=== PATIENT | male | born 1950 | race Caucasian/White ===

== ENCOUNTER 2017-04-20 08:01 | Emergency (ER) | payer OTHER ==
[2017-04-20 08:10] VITALS: BP 176/104; PULSE 81; RESP 16; TEMP 98.4; O2SAT 94
--- NOTE | 2017-04-20 08:13 | EDPHY ---
H & P Stated Complaint: SWELLING OF BOTH EYELIDS, SINCE THURSDAY Time Seen by Provider: 04/20/17 08:13 - Personal History Current Tetanus/Diphtheria Vaccine: Unsure - Medical/Surgical History Hx Asthma: No Hx Chronic Respiratory Disease: No Hx Diabetes: No Hx Cardiac Disease: No Hx Renal Disease: No Hx Cirrhosis: No Hx Alcoholism: No Hx Splenectomy or Spleen Trauma: No Other PMH: PROSTATE CANCER - Social History Smoking Status: Never smoked Constitutional: Initial Vital Signs Temperature (C) 36.9 C 04/20/17 08:06 Heart Rate 81 04/20/17 08:06 Respiratory Rate 16 04/20/17 08:06 Blood Pressure 176/104 H 04/20/17 08:06 O2 Sat (%) 94 04/20/17 08:06 O2 Delivery Mode Room Air Allergies/Adverse Reactions: No Known Allergies Allergy (Unverified 04/20/17 08:10) Home Medications: Medication Instructions Recorded Baby Aspirin 04/20/17 Famotidine [Pepcid 20 MG (OTC)] 40 mg PO DAILY #7 tab 04/20/17 Hormone Jayce 04/20/17 Lisinopril 04/20/17 predniSONE 40 mg PO DAILY #10 tab 04/20/17 Medical Decision Making ED Course/Re-evaluation: CHIEF COMPLAINT: Periorbital swelling HISTORY OF PRESENT ILLNESS: The patient is a 66 y/o male arriving with his family member complaining of periorbital swelling for the last two days. He's experienced this 5-6 times before while traveling to [place] and [place] and initially thought it may have been the hotel pillow, hotel detergent, pesticides , or water, but he has been unable to identify exactly what the trigger is. He does not get these symptoms while home in [place]. The swelling is not pruritic. He denies any respiratory involvement, lip swelling, tongue swelling, throat swelling, hives, rash, or other symptoms. He took 25mg Benadryl this morning for symptoms. He notes he has prostate cancer and is due to start immunotherapy in a few days. REVIEW OF SYSTEMS: A 10 point review of systems was performed and is negative with the exception of the elements mentioned in the history of present illness. PHYSICAL EXAM: HR, BP, O2 Sat, RR. Temp noted General Appearance: Alert, well hydrated, appropriate, and non-toxic appearing. Head: Atraumatic without scalp tenderness or obvious injury Eyes: Pupils equal, round, reactive to light and accommodation, EOMI, no trauma , no injection. Significant bilateral periorbital swelling and erythema. Nose: Atraumatic, no rhinorrhea, clear. Throat: There is no erythema or exudates, no lesions, normal tonsils, mucus membranes moist. No angioedema. Uvula midline. Neck: Supple Respiratory: No retractions, no distress, no wheezes, and no accessory muscle use. Lungs are clear to auscultation bilaterally. No stridor. Cardiovascular: Regular rate and rhythm, no murmurs, rubs, or gallops. Good capillary refill all extremities. Gastrointestinal: Abdomen is soft, nontender, non-distended, no masses, no rebound, no guarding, no peritoneal signs. Musculoskeletal: Normal active ROM of all extremities, atraumatic. Neurological: Alert, appropriate, and interactive. Nonfocal neuro exam. Skin: No rashes, good turgor, no nodules on palpation. Past medical history: Prostate cancer Past surgical history: denies Family history: noncontributory Social history: Family member at bedside. Mother in hospice. Just returned from [place]. DIFFERENTIAL DIAGNOSIS: The differential diagnosis included but was not limited to contact dermatitis, angioedema, anaphylaxis, anaphylactoid reaction, urticarial reaction, and other infectious causes for skin rash. MEDICAL DECISION MAKING: This is a 66 y/o male who presents with a 2-day history of pronounced periorbital swelling that began while traveling this weekend. He has had approximately 5-6 prior episodes of similar symptoms and has been unable to identify the trigger. No evidence of respiratory or systemic involvement. His symptoms are consistent with a contact dermatitis. Plan for treatment 60mg PO prednisone, 40mg PO Pepcid, and standard allergic reaction follow up instructions. He is comfortable with this plan. Strict return precautions given. - Data Points Medications Given: Discontinued Medications Famotidine (Pepcid) 40 mg PO EDNOW ONE Stop: 04/20/17 08:21 Last Admin: 04/20/17 08:23 Dose: 40 mg Prednisone (Prednisone) 60 mg PO EDNOW ONE Stop: 04/20/17 08:21 Last Admin: 04/20/17 08:24 Dose: 60 mg Departure - Departure Disposition: Home, Routine, Self-Care Clinical Impression: Periorbital swelling Allergic reaction Qualifiers: Encounter type: initial encounter Qualified Code(s): T78.40XA - Allergy, unspecified, initial encounter Contact dermatitis Qualifiers: Contact dermatitis type: allergic Contact dermatitis trigger: other trigger Qualified Code(s): L23.89 - Allergic contact dermatitis due to other agents Condition: Good Instructions: General Allergic Reaction (ED) Additional Instructions: 1. Take prednisone and Pepcid as prescribed for the next 5 days. Discuss these medications with your oncologist. 2. Use Benadryl as needed for symptoms. 3. Follow up with an geographic information system surveyor in the next week. 4. Return to the ED for difficulty breathing, swallowing, or other worsening of condition. Referrals: Lesia Mason MD [Primary Care Provider] - As per Instructions Anjana Bunn MD [Medical Doctor] - As per Instructions Prescriptions: Famotidine [Pepcid 20 MG (OTC)] 40 mg PO DAILY #7 tab predniSONE 40 mg PO DAILY #10 tab Report Scribed for: Emiliano Kruse Report Scribed by: Yeimi Sanon Date of Report: 04/20/17 Time of Report: 09:21
[2017-04-20] MEDS ORDERED: diphenhydrAMINE 50 MG CAP PO ONE (08:19)
[2017-04-20] MEDS ORDERED: FAMOTIDINE 20 MG TAB PO ONE (08:20)
[2017-04-20] MEDS ORDERED: predniSONE 20 MG TAB PO ONE (08:20)
== END 2017-04-20 08:35 | disposition home or self-care (01) ==
DX: L23.89 Allergic contact dermatitis due to other agents (principal); Z85.46 Personal history of malignant neoplasm of prostate

== ENCOUNTER → 2018-07-14 | Outpatient (CLI) | payer OTHER ==
[~2018-07-14] MED LIST: GADOBUTROL 10 ML VIAL IVP ONE
== END ==
LOC: FIMAGING 09:27
PROVIDERS: ATTEND Internal Medicine Hematology & Oncology
DX: C61 Malignant neoplasm of prostate (principal); M79.651 Pain in right thigh; M79.652 Pain in left thigh; C79.51 Secondary malignant neoplasm of bone
CPT/HCPCS: 72157; 72158; 78306; A9503; A9585

== ENCOUNTER 2018-09-05 11:09 | Inpatient (IN) | payer OTHER ==
--- NOTE | 2018-09-05 11:28 | EDPHY ---
H & P Time Seen by Provider: 09/05/18 11:24 HPI/ROS: CHIEF COMPLAINT: Can't move the right leg HISTORY OF PRESENT ILLNESS: Patient has metastatic prostate cancer and has been through multiple treatments since he was diagnosed in 2013. He started having right leg weakness back on and had a lumbar and thoracic spine MRI on July 14 that did not show spinal cord compression. He was initially diagnosed because he plays the piano when he could not depressed the pedal with his right foot. He has just completed his 3rd chemotherapy treatment for prostate cancer. He presents today because the weakness was so bad that today he could not walk. Symptoms seem to be worse for him at night associated with bilateral muscle pain in the thighs. Not associated with numbness or incontinence. Symptoms today are severe. REVIEW OF SYSTEMS: Eye: no change in vision ENT: no sore throat Cardiac: no chest pain or syncope Pulmonary: no cough or SOB Abdomen: no vomiting, diarrhea, abdominal pain Musculoskeletal: HPI Skin: no rash Neuro: HPI, mild headache Constitutional: no fever : no urinary symptoms A comprehensive 10 point review of systems is otherwise negative aside from elements mentioned in the history of present illness. PAST MEDICAL HISTORY: Includes prostate cancer Social history: Here with his spouse, sees Dr. Harper at [facility] see General Appearance: Alert and conversant, cooperative. Eyes: Patient has some bilateral eyelid ecchymosis and swelling which according to the family is been present for least a couple of months and is not changed significantly from yesterday. ENT, Mouth: Normal mucous membranes. Respiratory: Normal respiratory effort, breath sounds equal, lungs are clear to auscultation. Cardiovascular: Regular rate and rhythm. Gastrointestinal: Abdomen is soft and non tender. Neurological: Patient is alert, face symmetric, good manager sql strength bilaterally. Speech is fluent. His right knee is weak and he is weak in dorsiflexion and plantar flexion of his right foot. He really can't dorsiflex at all in his toe is upgoing when tested for Babinski. Skin: Some right eyelid ecchymosis right greater than left Musculoskeletal: No peripheral edema. Psychiatric: Not agitated. Emergency Department course/MDM: Discussed with Dr. Beckford for [facility] prior to the patient 's arrival. Plan for Neuro axis MRI without contrast, discussed with Dr. Sandoval. Admission for further evaluation, can't walk. 1259: [place] will consult. 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 No spinal reason for right leg weakness. Patient is informed, hospitalist here to see the patient. Neurosurgical consultation obtained by Jannie. Smoking Status: Never smoked Constitutional: Initial Vital Signs Temperature (C) 37 C 09/05/18 11:19 Heart Rate 92 09/05/18 11:19 Respiratory Rate 16 09/05/18 11:19 Blood Pressure 126/60 H 09/05/18 11:19 O2 Sat (%) 95 09/05/18 11:19 O2 Delivery Mode Room Air Allergies/Adverse Reactions: No Known Allergies Allergy (Verified 09/05/18 11:14) Home Medications: Medication Instructions Recorded Acetaminophen [Tylenol ES 500 mg 1,000 mg PO TID 09/05/18 (*)] Aspirin [Aspirin 81mg (*)] 81 mg PO DAILY 09/05/18 Cholecalciferol Vit D3 [Vitamin D3 3,000 units PO DAILY 09/05/18 (*)] Herbals/Supplements -Info Only 1 ea PO DAILY 09/05/18 Ibuprofen [Advil] 400 mg PO DAILY 09/05/18 LORazepam [Ativan (*)] 0.5 mg PO HS 09/05/18 [place]-3 Fatty Acids [Fish Oil 1000 2,000 mg PO DAILY 09/05/18 mg (*)] Prochlorperazine Maleate 10 mg PO Q6 PRN 09/05/18 [Compazine 10mg (*)] Sertraline HCl [Zoloft 25mg (*)] 12.5 mg PO DAILY 09/05/18 predniSONE 10 mg PO DAILY 09/05/18 traMADol HCL [Tramadol HCl] 50 mg PO HS 09/05/18 Medical Decision Making - Diagnostics Imaging: Discussed imaging studies w/ house calls nurse practitioner Radiologist Differential Diagnosis: Differential considered including but not limited to intracranial mass, intracranial bleed, spinal cord compression, peripheral neuropathy. Consult/Admit Bed Type: [facility] - Data Points Laboratory Results: Laboratory Results 09/05/18 12:02 09/05/18 12:02 09/05/18 09/05/18 09/05/18 12:08 12:02 12:02 WBC 4.40 10^3/uL 10^3/uL (3.80-9.50) RBC 3.13 10^6/uL L 10^6/uL (4.40-6.38) Hgb 8.2 g/dL L g/dL (13.7-17.5) POC Hgb 9.2 gm/dL L gm/dL (13.7-17.5) Hct 27.8 % L % (40.0-51.0) POC Hct 27 % L % (40-51) MCV 88.8 fL fL (81.5-99.8) MCH 26.2 pg L pg (27.9-34.1) MCHC 29.5 g/dL L g/dL (32.4-36.7) RDW 20.8 % H % (11.5-15.2) Plt Count 278 10^3/uL 10^3/uL (150-400) MPV 9.0 fL fL (8.7-11.7) Neut % (Auto) 77.0 % H % (39.3-74.2) Lymph % (Auto) 12.0 % L % (15.0-45.0) [place] % (Auto) 8.0 % % (4.5-13.0) Eos % (Auto) 1.4 % % (0.6-7.6) Baso % (Auto) 0.5 % % (0.3-1.7) Nucleat RBC Rel Count 0.5 % H % (0.0-0.2) Absolute Neuts (auto) 3.39 10^3/uL 10^3/uL (1.70-6.50) Absolute Lymphs (auto) 0.53 10^3/uL L 10^3/uL (1.00-3.00) Absolute Monos (auto) 0.35 10^3/uL 10^3/uL (0.30-0.80) Absolute Eos (auto) 0.06 10^3/uL 10^3/uL (0.03-0.40) Absolute Basos (auto) 0.02 10^3/uL 10^3/uL (0.02-0.10) Absolute Nucleated RBC 0.02 10^3/uL H 10^3/uL (0-0.01) Immature Gran % 1.1 % % (0.0-1.1) Immature Gran # 0.05 10^3/uL 10^3/uL (0.00-0.10) RBC/WBC/PLT Morphology TNP Platelet Estimate ADEQUATE (ADEQ) Polychromasia 1+ H Hypochromasia 1+ H Basophilic Stippling 1+ H Microcytic Cells 1+ H Tear Drop Cells 1+ H Smear Review By Pending POC Sodium 137 mEq/L mEq/L (135-145) Sodium 135 mEq/L mEq/L (135-145) POC Potassium 4.0 mEq/L mEq/L (3.3-5.0) Potassium 4.3 mEq/L mEq/L (3.5-5.2) POC Chloride 100 mEq/L mEq/L (97-110) Chloride 102 mEq/L mEq/L (97-110) Carbon Dioxide 26 mEq/l mEq/l (22-31) Anion Gap 7 mEq/L mEq/L (6-14) POC BUN 17 mg/dL mg/dL (7-23) BUN 19 mg/dL mg/dL (7-23) Creatinine 0.8 mg/dL mg/dL (0.7-1.3) POC Creatinine 0.8 mg/dL mg/dL (0.7-1.3) Estimated GFR > 60 Glucose 90 mg/dL mg/dL (70-100) POC Glucose 89 mg/dL mg/dL (70-100) Calcium 8.4 mg/dL L mg/dL (8.5-10.4) Creatine Kinase 259 IU/L H IU/L (0-224) CK-MB (CK-2) Fraction 0.85 ng/mL ng/mL (0.00-4.55) CK-MB (CK-2) % 0.3 % % (0.0-4.0) Creatine Kinase Interp NEGATIVE (NEGATIVE) Point of Care Test Results: Chemistry 09/05/18 12:08 POC Sodium 137 mEq/L mEq/L (135-145) POC Potassium 4.0 mEq/L mEq/L (3.3-5.0) POC Chloride 100 mEq/L mEq/L (97-110) POC BUN 17 mg/dL mg/dL (7-23) POC Creatinine 0.8 mg/dL mg/dL (0.7-1.3) POC Glucose 89 mg/dL mg/dL (70-100) ISTAT H&H 09/05/18 12:08 POC Hgb 9.2 gm/dL L gm/dL (13.7-17.5) POC Hct 27 % L % (40-51) Departure - Departure Disposition: [facility] Inpatient Acute Clinical Impression: left parenchymal intracranial hemorrhage Condition: Serious
[2018-09-05 12:14] LABS: PLATELET COUNT 278 10^3/uL (150-400)
[2018-09-05 12:26] LABS: CREATINE KINASE 259 IU/L (0-224)
[2018-09-05] MEDS ORDERED: ONDANSETRON 4 MG/2 ML VIAL IVP PRN (14:06)
[2018-09-05] MEDS ORDERED: HYDROmorphONE/DILAUDID 1 MG/ML INJ IVP PRN (14:06)
[2018-09-05] MEDS ORDERED: ONDANSETRON DISINTEGRATING 4 MG TAB PO PRN (14:06)
[2018-09-05] MEDS ORDERED: ACETAMINOPHEN 325 MG TAB PO PRN (14:06)
[2018-09-05] MEDS ORDERED: HYDROCODONE/APAP 5/325 TAB PO PRN (14:06)
--- NOTE | 2018-09-05 14:06 | PDGENHP ---
History and Physical - Chief Complaint RLE weakness - History of Present Illness 67 yo male with h/o prostate cancer and known spine mets presents with RLE weakness. He was unable to walk today due to profound leg weakness and presented to the ED. He denies urinary or bowel incontinence. He underwent thoracic and lumbar spine MRI in 06/2018, which was negative for cord impingement. However, his symptoms have worsened since then. He is followed by Dr. Harper and just completed his 3rd chemo treatment. He denies headache , but endorses some vision changes recently with intermittent blurry vision. He also notes left hand numbness at times. No fevers/chills. No CP or SOB. No back pain despite multilevel metastatic disease. In the ED, he was sent for whole spine MRI and brain MRI. This revealed left hemispheric hemorrhagic stroke in setting of dural and brain mets. Oncology and neurosurgery are consulted and he is admitted for further management. History Information - Allergies/Home Medication List Allergies/Adverse Reactions: No Known Allergies Allergy (Verified 09/05/18 11:14) Home Medications: Acetaminophen [Tylenol ES 500 mg (*)] 1,000 mg PO TID 09/05/18 [Last Taken 09/05] Aspirin [Aspirin 81mg (*)] 81 mg PO DAILY 09/05/18 [Last Taken 09/05/18] Cholecalciferol Vit D3 [Vitamin D3 (*)] 3,000 units PO DAILY 09/05/18 [Last Taken 09/05/18] Herbals/Supplements -Info Only 1 ea PO DAILY 09/05/18 [Last Taken Unknown] Ibuprofen [Advil] 400 mg PO DAILY 09/05/18 [Last Taken 09/05/18] LORazepam [Ativan (*)] 0.5 mg PO HS 09/05/18 [Last Taken 09/04/18] [place]-3 Fatty Acids [Fish Oil 1000 mg (*)] 2,000 mg PO DAILY 09/05/18 [Last Taken 09/05/18] Prochlorperazine Maleate [Compazine 10mg (*)] 10 mg PO Q6 PRN 09/05/18 [Last Taken Unknown] Sertraline HCl [Zoloft 25mg (*)] 12.5 mg PO DAILY 09/05/18 [Last Taken 09/05/18] predniSONE 10 mg PO DAILY 09/05/18 [Last Taken 09/04/18] traMADol HCL [Tramadol HCl] 50 mg PO HS 09/05/18 [Last Taken 09/04/18] I have personally reviewed and updated: family history, medical history, social history, surgical history - Past Medical History Additional medical history: Prostate cancer - Surgical History Additional surgical history: Prostatectomy 2013 - Family History Positive for: non-pertinent - Social History Smoking Status: Never smoked Alcohol Use: None Drug Use: None Additional social history: Lives independently, . at bedside. Review of Systems Review of Systems: ROS: 10pt was reviewed & negative except for what was stated in HPI & below Physical Exam Physical Exam: Temp Pulse Resp BP Pulse Ox 37 C 92 16 126/60 H 95 09/05/18 11:19 09/05/18 11:19 09/05/18 11:19 09/05/18 11:19 09/05/18 11: Constitutional: no apparent distress Eyes: PERRL, other (eyelid ecchymosis b/l) Ears, Nose, Mouth, Throat: moist mucous membranes Cardiovascular: regular rate and rhythym Respiratory: no respiratory distress, clear to auscultation Gastrointestinal: normoactive bowel sounds, soft, non-tender abdomen Skin: warm Musculoskeletal: other (absent right ankle reflexes and unable to plantar flex or dorsiflex at ankle, but proximal RLE intact) Neurologic: AAOx3 Psychiatric: interacting appropriately Lab Data & Imaging Review 09/05/18 12:02 09/05/18 12:02 WBC 4.40 10^3/uL (3.80-9.50) 09/05/18 12:02 RBC 3.13 10^6/uL (4.40-6.38) L 09/05/18 12:02 Hgb 8.2 g/dL (13.7-17.5) L 09/05/18 12:02 POC Hgb 9.2 gm/dL (13.7-17.5) L 09/05/18 12:08 Hct 27.8 % (40.0-51.0) L 09/05/18 12:02 POC Hct 27 % (40-51) L 09/05/18 12:08 MCV 88.8 fL (81.5-99.8) 09/05/18 12:02 MCH 26.2 pg (27.9-34.1) L 09/05/18 12:02 MCHC 29.5 g/dL (32.4-36.7) L 09/05/18 12:02 RDW 20.8 % (11.5-15.2) H 09/05/18 12:02 Plt Count 278 10^3/uL (150-400) 09/05/18 12:02 MPV 9.0 fL (8.7-11.7) 09/05/18 12:02 Neut % (Auto) 77.0 % (39.3-74.2) H 09/05/18 12:02 Lymph % (Auto) 12.0 % (15.0-45.0) L 09/05/18 12:02 [place] % (Auto) 8.0 % (4.5-13.0) 09/05/18 12:02 Eos % (Auto) 1.4 % (0.6-7.6) 09/05/18 12:02 Baso % (Auto) 0.5 % (0.3-1.7) 09/05/18 12:02 Nucleat RBC Rel Count 0.5 % (0.0-0.2) H 09/05/18 12:02 Absolute Neuts (auto) 3.39 10^3/uL (1.70-6.50) 09/05/18 12:02 Absolute Lymphs (auto) 0.53 10^3/uL (1.00-3.00) L 09/05/18 12:02 Absolute Monos (auto) 0.35 10^3/uL (0.30-0.80) 09/05/18 12:02 Absolute Eos (auto) 0.06 10^3/uL (0.03-0.40) 09/05/18 12:02 Absolute Basos (auto) 0.02 10^3/uL (0.02-0.10) 09/05/18 12:02 Absolute Nucleated RBC 0.02 10^3/uL (0-0.01) H 09/05/18 12:02 Immature Gran % 1.1 % (0.0-1.1) 09/05/18 12:02 Immature Gran # 0.05 10^3/uL (0.00-0.10) 09/05/18 12:02 RBC/WBC/PLT Morphology TNP 09/05/18 12:02 Platelet Estimate ADEQUATE (ADEQ) 09/05/18 12:02 Polychromasia 1+ H 09/05/18 12:02 Hypochromasia 1+ H 09/05/18 12:02 Basophilic Stippling 1+ H 09/05/18 12:02 Microcytic Cells 1+ H 09/05/18 12:02 Tear Drop Cells 1+ H 09/05/18 12:02 POC Sodium 137 mEq/L (135-145) 09/05/18 12:08 Sodium 135 mEq/L (135-145) 09/05/18 12:02 POC Potassium 4.0 mEq/L (3.3-5.0) 09/05/18 12:08 Potassium 4.3 mEq/L (3.5-5.2) 09/05/18 12:02 POC Chloride 100 mEq/L (97-110) 09/05/18 12:08 Chloride 102 mEq/L (97-110) 09/05/18 12:02 Carbon Dioxide 26 mEq/l (22-31) 09/05/18 12:02 Anion Gap 7 mEq/L (6-14) 09/05/18 12:02 POC BUN 17 mg/dL (7-23) 09/05/18 12:08 BUN 19 mg/dL (7-23) 09/05/18 12:02 Creatinine 0.8 mg/dL (0.7-1.3) 09/05/18 12:02 POC Creatinine 0.8 mg/dL (0.7-1.3) 09/05/18 12:08 Estimated GFR > 60 09/05/18 12:02 Glucose 90 mg/dL (70-100) 09/05/18 12:02 POC Glucose 89 mg/dL (70-100) 09/05/18 12:08 Calcium 8.4 mg/dL (8.5-10.4) L 09/05/18 12:02 Creatine Kinase 259 IU/L (0-224) H 09/05/18 12:02 CK-MB (CK-2) Fraction 0.85 ng/mL (0.00-4.55) 09/05/18 12:02 CK-MB (CK-2) % 0.3 % (0.0-4.0) 09/05/18 12:02 Creatine Kinase Interp NEGATIVE (NEGATIVE) 09/05/18 12:02 Assessment & Plan Assessment: RLE weakness 2/2 hemorrhagic brain mets -admit to ICU, neurochecks -IV Dexamethasone -load with keppra if he has seizure activity -neurosurgery consulted, will keep NPO for now -oncology to consult Prostate cancer with extensive bone mets and now dural / brain mets with acute hemorrhage - s/p radical prostatectomy at [facility] in 2013 followed by radiation therapy and tx with Lupron and Casodex. He was treated with Zytiga in 08/2017 when PSA continued to rise and spinal mets were discovered. Most recently, he is completed cycle 3 of cabazitaxel and prednisone. -oncology will consult -pain control H/O hypercalcemia of malignancy - s/p Zometa. Ca 8.4 today. Anemia - suspect 2/2 chemo. Receives Aranesp per onc. No indication for transfusion currently. Depression - on SSRI DVT PPLX - defer pharm with brain bleed, SCD's Code status - discussed with pt, he wishes to be DNR/DNI, which will be honored Dispo - inpt, anticipate >48 hrs hospitalization for ongoing management of brain mets/hemorrhage. PT/OT evals planned.
[2018-09-05] MEDS ORDERED: PROCHLORPERAZINE MALEATE 10 MG TAB PO PRN (14:07)
[2018-09-05] MEDS ORDERED: GADOBUTROL 10 ML VIAL IVP ONE (14:40)
[2018-09-05] MEDS ORDERED: DEXAMETHASONE 10 MG/ML VIAL IVP ONE (15:33)
[2018-09-05] MEDS ORDERED: DEXAMETHASONE 20 MG in NS 50 ML IV ONE (16:00)
[2018-09-05] MEDS ORDERED: NS 1,000 ML IV SCH (16:00)
--- NOTE | 2018-09-05 16:27 | ASMTCMCOM ---
CM Note CM Note Notes: Pt presented to the ED for RLE weakness. Pt's PMH includes prostate cancer w/known extensive mets to the spine. Pt is followed by Dr Harper at [facility]. Pt just recently completed his third chemo treatment. Pt had a prostatectomy in 2013. Pt admitted for acute hemorrhagic stroke in setting of dural and brain mets. Pt's , Padmini, was at bedside earlier and mentioned to the ED provider and RN that she would like to discuss the possibility of getting a hospital bed into their home, setting up home care assistance, etc. This CM went to speak to pt and he was in MRI and Padmini had stepped out to do something w/their daughter but planned on returning. Apparently Padmini and their daughter, Urvashi, returned to the ED just as the pt was being transported to the ICU. Pt wishes to be a DNR/DNI. Neurosurgery and oncology to consult. Exact DC needs TBD.PT/OT evals ordered. Palliative Care or Hospice consult? CM to follow. Date Signed: 09/05/2018 04:27 PM Electronically Signed By:Consuelo Ladd RN
[2018-09-05] MEDS: ACETAMINOPHEN 500 MG TAB PO SCH ×2 (16:33→21:30)
--- NOTE | 2018-09-05 16:47 | PDMN ---
Medical Necessity Medical necessity: Pt meets inpt criteria per MD order and [facility] M-85, Stroke: Hemorrhagic, 3 days. 67 y/o w/hx of prostate cancer w/ mets to spine, presenting w/severe RLE weakness/unable to ambulate, visual changes, and L hand numbness. Brain MRI today reveals L hemisphere hemorrhagic stroke in setting of dural and brain mets. Neurosurg consulted, NPO for now, ICU monitoring/care. Anticipate>2MN for ongoing eval/management of above.
--- NOTE | 2018-09-05 18:21 | GCON ---
MEDICAL ONCOLOGY FOLLOWUP CONSULTATION REFERRING PHYSICIAN: Mattie Valderrama MD REASON FOR CONSULTATION: Ongoing management of metastatic prostate cancer with new evidence of intra cranial RECOMMENDATIONS: 1. Agree with admission to the hospital in the intensive care unit. 2. Agree with Neurosurgical consultation to determine whether evacuation of his hematoma is appropri ate. 3. The patient may be appropriate for palliative radiation therapy, but this will depend on overall decision making. 4. Agree with dexamethasone 20 mg loading dose followed by 6 mg every 6 hours. 5. I think Palliative Care consultation is appropriate. 6. Agree with do not resuscitate status. 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 He was treated with radical prostatectomy, and had a positive a pical margin. He received adjuvant radiation therapy and was also placed on Lupron and Casodex. He had a rising PSA in July 2017, and received Provenge at that time. Unfortunately, his PSA has co ntinued to rise. The patient received Zytiga without benefit. He has also received Taxotere and, mo st recently, cabazitaxel. He has received 3 doses of that, the most recent of which was on the 03 September 2018. Unfortunately, he has developed increasing weakness of his lower extremities. His called me thi s morning and reported these symptoms. I recommended that he come to the emergency room for evaluati on. As part of that evaluation, he had MRI of his brain as well as MRIs of the cervical, lumbar, and thoracic spine. The brain MRI revealed extensive metastatic disease in his dura with extension into the parenchyma, and hemorrhage into the left parietal lobe. In addition, in his thoracic spine ther e is a 2.2 cm posterior, right-sided epidural tumor at the T7 to T8 level. There is no current cord impingement, however. I believe these recent changes indicate that his current palliative therapy is not addressing his pro gressive metastatic disease. I spoke with the patient, his , and daughter. I believe he is like ly at the point of diminishing returns as far as systemic palliative therapy is concerned. I think i t is reasonable to have a neurosurgical opinion as to whether a fairly simple procedure is appropriat e to evacuate the hematoma. I think Palliative Care consultation is also very appropriate to help cl arify goals of therapy. I will speak with the patient's primary oncologist, Dr. Catrachito Harper, this evening. Dr. Harper will see the patient tomorrow. HISTORY OF PRESENT ILLNESS: Please see assessment. PAST MEDICAL HISTORY: Essentially otherwise unremarkable except for his prostate cancer, its treatme nt and complications. FAMILY HISTORY: Remarkable for prostate cancer in his father and uncle, both of whom had prostate ca ncer when they were in their 70s. SOCIAL HISTORY: He does not smoke. He drinks alcohol occasionally. 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 REVIEW OF SYSTEMS: Remarkable for inability to flex his right ankle, left leg weakness, numbness of his left chin, and periodic right facial droop. He is incontinent of urine, but not of stool. He re ports no nausea or vomiting. He says the pain is not an issue for him at this time. Ten-system revi ew is otherwise unremarkable. PHYSICAL EXAMINATION: GENERAL: Reveals an alert, cushingoid white male with his and daughter a t the bedside. HEENT: He has a slight right facial droop and also some quivering of his left cheek. He has cushingoid features. He does seem to have some hemorrhage in the periorbital spaces bilater ally. LUNGS: Clear to auscultation. CARDIAC: Exam shows regular rhythm. ABDOMEN: Exam shows obe se abdomen. LABORATORY EXAM: Creatinine of 0.8. His sodium is 137. His hemoglobin is 8.2, with a white count o f 4.4, and a platelet count of 278,000. Thank you very much for allowing us to participate in this gentleman's oncologic care. We look forwa rd to assisting with his management. Copy requested to: David Mueller MD [facility] /[id number]/MODL
[2018-09-05 20:10] LABS: INR 1.3 (0.83-1.16); PROTIME(PATIENT) 16.4 SEC (12.0-15.0)
[2018-09-05] MEDS: LORazepam 0.5 MG TAB PO SCH (21:30)
[2018-09-05] MEDS: DEXAMETHASONE 4 MG/ML VIAL IVP SCH (21:30)
[2018-09-05] MEDS: traMADol 50 MG TAB PO SCH (21:30)
[2018-09-06] MEDS: DEXAMETHASONE 4 MG/ML VIAL IVP SCH ×4 (00:18→17:23)
[2018-09-06] MEDS: ACETAMINOPHEN 500 MG TAB PO SCH ×3 (08:13→21:51)
[2018-09-06] MEDS: CHOLECALCIFEROL VIT D3 1,000 UNITS TAB PO SCH (08:14)
[2018-09-06] MEDS: SERTRALINE HCL 25 MG TAB PO SCH (08:14)
[2018-09-06] MEDS ORDERED: predniSONE 5 MG TAB PO SCH (09:00)
--- NOTE | 2018-09-06 09:51 | SOAPPROG ---
SOAP Progress Note Assessment/Plan: Assessment: 1. 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 We had a carrie discussion about his prognosis, which is poor (<6 months). He is not responding to cabzitaxel. We could try Xtandi, but since he progressed on Zytiga, the odds of a meaningful response are low. He is not interested in hospice at this time, however, and wants to try treatments that have even a small chance of helping. In terms of the neurosurgical issues, I discussed his case w/ Dr. Crandall. I would favor a less aggressive surgical approach (eg evacaution of the hematoma without contralateral tumor debulking) and we can use RT to try to control the growth of the dural metastases. Dr. Crandall is in agreement and will meet with the patient later today. Plan: - neurosurgical consult - continue dex 4 mg q6h - no NSAIDs - continue other pain medications - will order Xtandi for use as outpatient 40 min spent w/ pt and in coordination of care. D/w Drs. Crandall and Dalton. 09/06/18 09:45 Subjective: feels better today on dexamethasone. Objective: exam: cushingoid, chronically ill appearing lungs CTAB CV RRR no MGR Abd: +BS NT ND ext: 1+ edema Neuro: a+ox3. no cranial nerve deficits. R foot drop. Vital Signs Temp Pulse Resp BP Pulse Ox 37.0 C 87 17 124/55 H 92 09/06/18 08:00 09/06/18 08:00 09/06/18 08:00 09/06/18 08:00 09/06/18 08:00 Laboratory Results 09/06/18 06:30 09/05/18 09/06/18 09/07/18 05:59 05:59 05:59 Intake Total 300 Output Total 400 Balance -100 PT 16.4 SEC (12.0-15.0) H 09/05/18 19:45 INR 1.30 (0.83-1.16) H 09/05/18 19:45 ICD10 Worksheet Patient Problems: Problems Problem Status Onset Prostate cancer Acute - ICD10 Problem Qualifiers (1) Prostate cancer
--- NOTE | 2018-09-06 10:53 | HOSPPROG ---
Hospitalist Progress Note Assessment/Plan: RLE weakness 2/2 hemorrhagic brain mets -cont dex -neurosurgery to consult Prostate cancer with extensive bone mets and now dural / brain mets with acute hemorrhage / SDH and presume leptomeningeal carcinomatosis - s/p radical prostatectomy at [facility] in 2013 followed by radiation therapy and tx with Lupron and Casodex. He was treated with Zytiga in 08/2017 when PSA continued to rise and spinal mets were discovered. Most recently, he completed cycle 3 of cabazitaxel and prednisone. -appreciate oncology consult, prognosis poor -may be a candidate for radiation, await decision about surgery -palliative care consult today H/O hypercalcemia of malignancy - s/p Zometa. Ca 8.4 today. Anemia - suspect 2/2 chemo. Receives Aranesp per onc. No indication for transfusion currently. Depression - on SSRI DVT PPLX - defer pharm with brain bleed, SCD's Code status - DNR Dispo - cont inpt, palliative care consult today, family open to this Subjective: Pt feels good right now. Still with RLE ankle weakness and foot drop. Denies jones or vision changes. Appetite fair. Denies pain. Objective: Vital Signs Temp Pulse Resp BP Pulse Ox 37.0 C 96 22 H 132/57 H 92 09/06/18 08:00 09/06/18 10:00 09/06/18 10:00 09/06/18 10:00 09/06/18 08:00 Laboratory Results 09/06/18 06:30 09/05/18 09/06/18 09/07/18 05:59 05:59 05:59 Intake Total 300 Output Total 400 Balance -100 PT 16.4 SEC (12.0-15.0) H 09/05/18 19:45 INR 1.30 (0.83-1.16) H 09/05/18 19:45 - Physical Exam Constitutional: no apparent distress Eyes: PERRL Ears, Nose, Mouth, Throat: moist mucous membranes Cardiovascular: regular rate and rhythym Respiratory: no respiratory distress, clear to auscultation Gastrointestinal: normoactive bowel sounds, soft, non-tender abdomen Skin: warm Musculoskeletal: other (RLE ankle reflexes absent, unable to dorsiflex or plantarflex) Neurologic: AAOx3 Psychiatric: interacting appropriately ICD10 Worksheet Patient Problems: Problems Problem Status Onset Prostate cancer Acute
--- NOTE | 2018-09-06 16:59 | ASMTCMCOM ---
CM Note CM Note Notes: 09/06/2018 Case Management Note Rudi from Palliative team met w/family today. Please see Palliative note for details. Faxed referral to [facility] via [employer]. Met w/pt and children to discuss discharge needs. Provided info on [employer] and [employer] companies for hospital bed. Encouraged to contact insurance company to ascertain medical equipment coverage. Pt and declined home care at this time. They have hired [facility] to transport pt to appointments during the day. Pt prefers social aspects of attending outpatient PT. Daughter expressed concerns with pt being home alone. explained that [employer] Alert has been activated and pt feels comfortable with that plan at this time. [facility] met w/pt today. Pt has agreed to start services. [facility] [employer]AFFING EXECUT[employer] will meet w/pt and family on Thu after rounds. Case Management d/c poc: to be determined. Case Management to follow. Date Signed: 09/06/2018 04:59 PM Electronically Signed By:Lesia Cowart RN
--- NOTE | 2018-09-06 17:48 | GCON ---
INPATIENT CONSULTATION CHIEF COMPLAINT: Right leg and ankle weakness. HISTORY OF PRESENT ILLNESS: Patient is a 67-year-old male with a history of prostate cancer and known spinal metastasis. He presented to the Emergency Department due to the increasing weakness in his right leg. The patient noted the majority of his weakness to be located in the right ankle area as well as his quadricep and hamstring, his upper leg strength has improved since being admitted and started on steroids but he continues to have foot weakness. The patient denies any lower back pain. Denies any symptoms in his left lower extremity. The patient denies any bowel or bladder incontinence. MRI of the whole spine and the brain were performed, which revealed multiple brain and spine metastasis, we were asked to see this patient in consult. REVIEW OF SYSTEMS: A 10-point review of systems was performed and negative aside from what was mentioned in the HPI. ALLERGIES: Patient has no known drug allergies. HOME MEDICATIONS: Tylenol 500 mg p.r.n.; aspirin 81 mg daily, last dose was September 05, 2018; vitamin D3 daily; ibuprofen 400 mg p.o. daily, last dose was September 05, 2018; Ativan 0.5 mg p.o. at bedtime; fish oil 1000 mg daily; Compazine 10 mg p.o. q.6 hours p.r.n.; Zoloft 25 mg tablets. He takes 12.5 mg p.o. daily. Prednisone 10 mg p.o. daily; tramadol 50 mg p.o. at bedtime. PAST MEDICAL HISTORY: Prostate cancer and hypertension. SURGICAL HISTORY: Prostatectomy in 2014. FAMILY HISTORY: Family history reviewed, noncontributory to the present situation. SOCIAL HISTORY: The patient is . He is retired. He has never smoked cigarettes. Does not drink alcohol, and does not use any illicit drugs. LABORATORY RESULTS: White blood cell count is 4.84. Hemoglobin is 8. Hematocrit is 26.6. Platelets are 294. PT 16.4, INR 1.3, aPTT 46.2, sodium 137 , potassium 4.3, BUN 19, creatinine 0.8. Glucose is 90. DIAGNOSTIC IMAGING: MRI of the brain performed with and without contrast on September 05, 2018, demonstrates extensive features of dural metastasis disease with a 5 cm dural- based mass at the right parietal with extension through the superior sagittal sinus at the midline into the left parietal para midline meninges. This is associated with a high left parietal multi-lobe related cortical parenchymal hematoma measuring 4.3 x 2.7 cm in size with a mild local mass effect. Extensive dural thickening and Stu enhancement throughout the cerebral hemispheres bilaterally is compatible with extensive meningeal carcinomatosis, moderate white volume matter, microvascular ischemic gliosis, small to moderate right subdural hygroma, and a small left subdural hygroma. Extensive osseous metastasis disease throughout the bony calvarium. Chronic bilateral mastoid sinus disease. MRI of the lumbar spine performed without contrast in September 05, 2018, demonstrates extensive osseous metastasis disease throughout the lower thoracic and lumbar, and upper sacral spine without any evidence of tumor extension into the spinal canal. The patient has minimal features of degenerative disk disease. MRI of the thoracic spine without contrast performed September 05, 2018, demonstrates extensive osseous metastasis disease throughout the thoracic spine with a 2.2 cm posterior right-sided epidural tumor at the T7-8 level with secondary moderate right lateral recess narrowing without thoracic cord impingement or edema currently. MRI of the cervical spine performed without contrast on September 05, 2018, demonstrates extensive osseous metastasis disease throughout the lower cervical spine and upper thoracic spine extending from C5-T2. There is no evidence of tumor extension into the canal or abnormal signal within the spinal cord. PHYSICAL EXAM: VITAL SIGNS: Blood pressure is 132/57, heart rate 96. Respiratory rate is 22. Oxygen saturation is 96% on room air. Temperature 37 degrees Celsius. HEENT: Head is normocephalic and atraumatic. Pupils are equal, round, and reactive to light. EOMI intact. Full visual wills by confrontation. RESPIRATORY AND CARDIAC: Deferred. ABDOMINAL GENITOURINARY AND RECTAL: Deferred. NEUROLOGIC: The patient is awake and alert, and oriented to name, place, location, date, time, and situation. He is sitting up in a chair. His speech is fluent with no dysphasia or dysphonia. His memory is intact to immediate past or current events. Cranial nerves 2-12 are grossly intact. Motor, patient had 5/5 strength in all muscle groups in bilateral upper and lower extremities, aside from the RIGHT TA and EHL being 3/5. All other muscle groups including the deltoids, biceps, triceps, brachialis flexors and extensors, wrist extensors audio video technician, intrinsic fingers iliopsoas, quadriceps, hamstring, plantar flexion, dorsiflexion, EHL testing. Sensation is grossly intact to light touch throughout all dermatomal distributions. BILATERAL LOWER EXTREMITIES: Negative straight-leg raise test, negative BIN test. REFLEXES: Biceps, brachialis, and knee jerk are 2+/4. Babinski is negative. Fabian is negative. ASSESSMENT AND PLAN: Patient is a 67-year-old gentleman with history of prostate cancer, who was admitted with progressive right leg weakness. The patient underwent an MRI of the entire spine, as well as the brain, and was found to have diffuse metastatic disease throughout the entire spine without any worrisome compression. MRI of the brain shows a 5 mm dural-based mass in the right parietal, which extends through the superior sagittal sinus at the midline into the left parietal meninges. The patient's findings on the left side could be contributing to his right foot weakness. Dr. Crandall has spoke with Dr. Harper about the patient's prognosis, which is likely less than 6 months at this point. The patient would like to be able to continue to play the piano, and is hoping to regain some function of his right foot to do so. The patient is currently neurologically intact, and he has felt some improvement in his right leg strength since being started on steroids upon admission. The patient would like to consider surgical intervention if recommended. We will need to continue to hold his aspirin until a decision is made. His last dose was yesterday, on September 05. Dr. Reza will be by to see the patient this afternoon to discuss surgical options. Surgical approach will likely include removal of the left frontal lesion in an effort to help with the right foot weakness. The patient was seen and examined in the ICU bedside this morning at 7:15 a.m. by neurosurgical services. Please contact Neurosurgery with any questions or concerns. /[id number]/[facility] NEUROSURGERY ATTENDING NOTE I met with the patient and his for about 45 min and reviewed his treatment options on the evening of the consult. They will think about no surgery, versus hematoma evacuation versus resection on the left for his right foot symptoms. Risks and benefits of options reviewed. They will let us know how they want to proceed. GERARD
[2018-09-06] MEDS: LORazepam 0.5 MG TAB PO SCH (21:51)
[2018-09-06] MEDS: traMADol 50 MG TAB PO SCH (21:52)
[2018-09-07] MEDS: DEXAMETHASONE 4 MG/ML VIAL IVP SCH ×4 (02:24→18:21)
[2018-09-07] MEDS: ACETAMINOPHEN 500 MG TAB PO SCH ×3 (08:17→21:57)
[2018-09-07] MEDS: CHOLECALCIFEROL VIT D3 1,000 UNITS TAB PO SCH (08:18)
[2018-09-07] MEDS: SERTRALINE HCL 25 MG TAB PO SCH (08:18)
--- NOTE | 2018-09-07 09:03 | NEUSURGPN ---
Assessment/Plan: 67 y/o male with hemorrhagic metastatic brain lesions with right foot weakness. -Dr. Reza discussed pros and cons with patient regarding surgery and he would liek to proceed -Patient has been booked for tomorrow afternoon with Dr. Crandall for a left sided frontal parietal craniotomy for evacuation for clot evacuation and tumor resection with Dr. Crandall -NPO after midnight -Stealth MRI ordered. -Hold anticoagulants -Discussed with Dr. Crandall -Please notify NS with any change in motor/neuro exam Subjective: Continued right foot weakness. Denies any headache, nausea, dizziness Objective: NAD A&Ox3 EOMI, PERRLA, CN II-XII grossly intact MAEx4 5/5 and equal in BUE and BLE, except right DF/PF 0/5. - Physician Discussed Patient with : [facility] Neuro[facility] Physical Exam - Vitals, I&O, Labs I and O 09/06/18 09/07/18 09/08/18 05:59 05:59 05:59 Intake Total 300 1700 Output Total 400 Balance -100 1700 Weight 79.832 kg Intake: Oral (ml) 300 1700 Output: Urine (ml) 400 Urinal 400 Other: Number of Voids 1 Toilet 4 1 Urinal 1 Number of Stools Toilet 1 Vital Signs Temp Pulse Resp BP Pulse Ox 36.6 C 77 17 138/67 H 96 09/07/18 08:07 09/07/18 08:07 09/07/18 08:07 09/07/18 08:07 09/07/18 08:07 Laboratory Results 09/06/18 06:30 ICD10 Worksheet Patient Problems: Problems Problem Status Onset Prostate cancer Acute
--- NOTE | 2018-09-07 10:19 | HOSPPROG ---
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 He was treated with Zytiga in 08/2017 when PSA continued to rise and spinal mets were discovered. Most recently, he completed cycle 3 of cabazitaxel and prednisone. -appreciate oncology consult, prognosis poor -palliative care consult today H/O hypercalcemia of malignancy - s/p Zometa. Ca 8.4 today. Anemia - suspect 2/2 chemo. Receives Aranesp per onc. No indication for transfusion currently. Depression - on SSRI DVT PPLX - defer pharm with brain bleed, SCD's Code status - DNR Dispo - cont inpt, palliative care consult today, family open to this Objective: Vital Signs Temp Pulse Resp BP Pulse Ox 36.6 C 77 17 138/67 H 96 09/07/18 08:07 09/07/18 08:07 09/07/18 08:07 09/07/18 08:07 09/07/18 08:07 Laboratory Results 09/06/18 06:30 09/06/18 09/07/18 09/08/18 05:59 05:59 05:59 Intake Total 300 1700 Output Total 400 Balance -100 1700 PT 16.4 SEC (12.0-15.0) H 09/05/18 19:45 INR 1.30 (0.83-1.16) H 09/05/18 19:45 ICD10 Worksheet Patient Problems: Problems Problem Status Onset Prostate cancer Acute
--- NOTE | 2018-09-07 12:39 | HOSPPROG ---
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 He was treated with Zytiga in 08/2017 when PSA continued to rise and spinal mets were discovered. Most recently, he completed cycle 3 of cabazitaxel and prednisone. -neurosurgery following, to OR tomorrow -appreciate oncology consult, prognosis poor -palliative care consult for outpatient support H/O hypercalcemia of malignancy - s/p Zometa. Ca nl on admission. Anemia - suspect 2/2 chemo. Receives Aranesp per onc. No indication for transfusion currently. Depression - on SSRI DVT PPLX - defer pharm with brain bleed, SCD's Code status - DNR Dispo - cont inpt, SDU, palliative care Subjective: Pt feels good today. Denies headache. No pain. Still with RLE weakness, foot drop. Wants to be able to play the piano again, thus opts to undergo surgery to evacuate tumor / blood. No fevers. Eating well. Objective: Vital Signs Temp Pulse Resp BP Pulse Ox 36.8 C 85 17 129/66 H 96 09/07/18 11:41 09/07/18 11:41 09/07/18 11:41 09/07/18 11:41 09/07/18 11:41 Laboratory Results 09/06/18 06:30 09/06/18 09/07/18 09/08/18 05:59 05:59 05:59 Intake Total 300 1700 Output Total 400 Balance -100 1700 PT 16.4 SEC (12.0-15.0) H 09/05/18 19:45 INR 1.30 (0.83-1.16) H 09/05/18 19:45 - Physical Exam Constitutional: no apparent distress Eyes: PERRL Ears, Nose, Mouth, Throat: moist mucous membranes Cardiovascular: regular rate and rhythym Respiratory: no respiratory distress, clear to auscultation Gastrointestinal: normoactive bowel sounds, soft, non-tender abdomen Skin: warm Musculoskeletal: other (Right ankle with absent reflexes, unable to plantar or dorsiflex) Neurologic: AAOx3 Psychiatric: interacting appropriately ICD10 Worksheet Patient Problems: Problems Problem Status Onset Prostate cancer Acute
--- NOTE | 2018-09-07 13:06 | SOAPPROG ---
SOAP Progress Note Assessment/Plan: Assessment: 1. 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 L parietal hemorrhage due to dural metastasis Plan: - evacuation of hematoma today - will need RT following that - will start Xtandi after RT. Pt understands that odds of meaningful response is relatively low. - transfuse RBC if hgb falls <7. 25 min spent w/ pt and in coordination of care. Subjective: feeling better today. Objective: exam: NAD. cushingoid Lungs CTAB CV RRR no MGR Abd: +BS NT nD ext: 1+ edema Neuro: a+ox3. R foot weak. Vital Signs Temp Pulse Resp BP Pulse Ox 36.8 C 85 17 129/66 H 96 09/07/18 11:41 09/07/18 11:41 09/07/18 11:41 09/07/18 11:41 09/07/18 11:41 Laboratory Results 09/06/18 06:30 09/06/18 09/07/18 09/08/18 05:59 05:59 05:59 Intake Total 300 1700 Output Total 400 Balance -100 1700 PT 16.4 SEC (12.0-15.0) H 09/05/18 19:45 INR 1.30 (0.83-1.16) H 09/05/18 19:45 ICD10 Worksheet Patient Problems: Problems Problem Status Onset Prostate cancer Acute - ICD10 Problem Qualifiers (1) Prostate cancer
[2018-09-07] MEDS ORDERED: GADOBUTROL 10 ML VIAL IVP ONE (14:30)
--- NOTE | 2018-09-07 16:46 | ASMTCMCOM ---
CM Note CM Note Notes: Pt to discharge with support from [facility] and [facility] to provide transport to appointments and outpatient PT. Declining [facility] at this time. Pt has [facility] Alert in case of emergency when alone. Order written by physician today for hospital bed and placed in chart. Message left for [facility] [employer] to begin the ordering and authorization process. CM to follow. D/C Plan: [facility], outpatient therapy, [facility] private duty and DME. Date Signed: 09/07/2018 04:45 PM Electronically Signed By:Sara Mills
[2018-09-07] MEDS: traMADol 50 MG TAB PO SCH (21:57)
[2018-09-07] MEDS: LORazepam 0.5 MG TAB PO SCH (21:57)
[2018-09-08] MEDS: DEXAMETHASONE 4 MG/ML VIAL IVP SCH ×5 (00:37→23:51)
--- NOTE | 2018-09-08 08:08 | SOAPPROG ---
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 -Dr. Reza discussed pros and cons with patient regarding surgery and he would like to proceed -Patient is on OR schedule today at [address] Crandall for a left sided frontal parietal craniotomy for evacuation for clot evacuation and tumor resection. -NPO after midnight -Stealth MRI ordered. -Hold anticoagulants -Repeating INR. last one on 09/05 was 1.3 -Discussed with Dr. Crandall -Please notify NS with any change in motor/neuro exam Subjective: Continued right foot weakness. Denies any headache, nausea, dizziness Objective: NAD A&Ox3 EOMI, PERRLA, CN II-XII grossly intact MAEx4 5/5 and equal in BUE and BLE, except right DF/PF 0/5. Objective: Vital Signs Temp Pulse Resp BP Pulse Ox 36.8 C 80 16 146/71 H 97 09/08/18 07:55 09/08/18 07:55 09/08/18 07:55 09/08/18 07:55 09/08/18 07:55 Laboratory Results 09/08/18 05:08 09/08/18 05:08 09/07/18 09/08/18 09/09/18 05:59 05:59 05:59 Intake Total 1700 800 Balance 1700 800 PT 16.4 SEC (12.0-15.0) H 09/05/18 19:45 INR 1.30 (0.83-1.16) H 09/05/18 19:45 ICD10 Worksheet Patient Problems: Problems Problem Status Onset Prostate cancer Acute
[2018-09-08 08:17] LABS: INR 1.31 (0.83-1.16); PROTIME(PATIENT) 16.5 SEC (12.0-15.0)
[2018-09-08] MEDS: ACETAMINOPHEN 500 MG TAB PO SCH ×3 (08:41→20:17)
[2018-09-08] MEDS: CHOLECALCIFEROL VIT D3 1,000 UNITS TAB PO SCH (08:41)
[2018-09-08] MEDS: SERTRALINE HCL 25 MG TAB PO SCH (08:41)
[2018-09-08] MEDS ORDERED: PHYTONADIONE 2.5 MG in NS 50 ML IV ONE (08:53)
[2018-09-08] MEDS ORDERED: ceFAZolin 2 GM/DEXTROSE 100 ML IV ONE ×2 (09:11→15:00)
--- NOTE | 2018-09-08 15:11 | HOSPPROG ---
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 He was treated with Zytiga in 08/2017 when PSA continued to rise and spinal mets were discovered. Most recently, he completed cycle 3 of cabazitaxel and prednisone. -neurosurgery following, to OR today -appreciate oncology consult, prognosis poor -palliative care planned for outpatient support H/O hypercalcemia of malignancy - s/p Zometa. Ca nl on admission. Anemia - suspect 2/2 chemo. Receives Aranesp per onc. No indication for transfusion currently. Depression - on SSRI DVT PPLX - defer pharm with brain bleed, SCD's Code status - DNR Dispo - cont inpt, SDU, palliative care Subjective: Pt resting comfortably. Had some pain overnight, currently pain free. Awaiting surgery today, NPO. Objective: Vital Signs Temp Pulse Resp BP Pulse Ox 36.9 C 72 16 148/76 H 95 09/08/18 12:00 09/08/18 14:19 09/08/18 14:19 09/08/18 14:19 09/08/18 14:19 Laboratory Results 09/08/18 05:08 09/08/18 05:08 09/07/18 09/08/18 09/09/18 05:59 05:59 05:59 Intake Total 1700 800 Balance 1700 800 PT 16.5 SEC (12.0-15.0) H 09/08/18 08:00 INR 1.31 (0.83-1.16) H 09/08/18 08:00 - Physical Exam Constitutional: no apparent distress Eyes: PERRL Ears, Nose, Mouth, Throat: moist mucous membranes Cardiovascular: regular rate and rhythym Respiratory: no respiratory distress Gastrointestinal: normoactive bowel sounds, soft, non-tender abdomen Skin: warm Musculoskeletal: other (Right ankle reflexes absent, unable to dorsiflex or plantar flex) Neurologic: AAOx3 Psychiatric: interacting appropriately ICD10 Worksheet Patient Problems: Problems Problem Status Onset Prostate cancer Acute
[2018-09-08 15:39] LABS: INR 1.32 (0.83-1.16); PROTIME(PATIENT) 16.6 SEC (12.0-15.0)
--- NOTE | 2018-09-08 15:42 | PDANEPAE ---
ANE History of Present Illness brain bleed from prostate ca mets ANE Past Medical History - Cardiovascular History Hx Hypertension: No Hx Arrhythmias: No Hx Chest Pain: No Hx Coronary Artery / Peripheral Vascular Disease: No Hx CHF / Valvular Disease: No Hx Palpitations: No - Pulmonary History Hx COPD: No Hx Asthma/Reactive Airway Disease: No Hx Recent Upper Respiratory Infection: No Hx Oxygen in Use at Home: No Hx Sleep Apnea: No Sleep Apnea Screening Result - Last Documented: Negative - Endocrine History Hx Diabetes: No Hypothyroid: No Hyperthyroid: No Obesity: no - Renal History Hx Renal Disorders: Yes Renal History Comment: UTI - Liver History Hx Hepatic Disorders: No - Neurological & Psychiatric Hx Hx Neurological and Psychiatric Disorders: No - Cancer History Hx Cancer: Yes Cancer History Comment: prostate ca with surgery, chemo. mets - Congenital Disorder History Hx Congenital Disorders: No - GI History GERD: no Hx Gastrointestinal Disorders: No - Chronic Pain History Chronic Pain: No ANE Review of Systems Review of systems is: negative (allergy to linen) Review of Systems: - Exercise capacity METS (RN): 4 METS ANE Patient History - Allergies Allergies/Adverse Reactions: No Known Allergies Allergy (Verified 09/05/18 11:14) - Home Medications Home medications: home medication list seen and reviewed Home Medications: Acetaminophen [Tylenol ES 500 mg (*)] 1,000 mg PO TID 09/05/18 [Last Taken 09/05] Aspirin [Aspirin 81mg (*)] 81 mg PO DAILY 09/05/18 [Last Taken 09/05/18] Cholecalciferol Vit D3 [Vitamin D3 (*)] 3,000 units PO DAILY 09/05/18 [Last Taken 09/05/18] Herbals/Supplements -Info Only 1 ea PO DAILY 09/05/18 [Last Taken Unknown] Ibuprofen [Advil] 400 mg PO DAILY 09/05/18 [Last Taken 09/05/18] LORazepam [Ativan (*)] 0.5 mg PO HS 09/05/18 [Last Taken 09/04/18] [place]-3 Fatty Acids [Fish Oil 1000 mg (*)] 2,000 mg PO DAILY 09/05/18 [Last Taken 09/05/18] Prochlorperazine Maleate [Compazine 10mg (*)] 10 mg PO Q6 PRN 09/05/18 [Last Taken Unknown] Sertraline HCl [Zoloft 25mg (*)] 12.5 mg PO DAILY 09/05/18 [Last Taken 09/05/18] predniSONE 10 mg PO DAILY 09/05/18 [Last Taken 09/04/18] traMADol HCL [Tramadol HCl] 50 mg PO HS 09/05/18 [Last Taken 09/04/18] - NPO status NPO Status: no food or drink >8 hours NPO Since - Liquids (Date): 09/08/18 NPO Since - Liquids (Time): 00:00 NPO Since - Solids (Date): 09/08/18 NPO Since - Solids (Time): 00:00 - Anes Hx Anes Hx: no prior problems - Smoking Hx Smoking Status: Never smoked - Alcohol Use Alcohol Use: None - Family Anes Hx Family Anes Hx: none ANE Labs/Vital Signs - Labs Result Diagrams: 09/08/18 05:08 09/08/18 05:08 - Vital Signs Blood Pressure: 148/76 Heart Rate: 72 Respiratory Rate: 16 O2 Sat (%): 95 Height: 177.8 cm Weight: 79.832 kg ANE Physical Exam - Airway Neck exam: FROM Mallampati Score: Class 2 Mouth exam: normal dental/mouth exam - Pulmonary Pulmonary: no respiratory distress, clear to auscultation - Cardiovascular Cardiovascular: regular rate and rhythym, no murmur, rub, or gallop - ASA Status ASA Status: III ANE Anesthesia Plan Anesthesia Plan: general endotracheal anesthesia Lines/Monitors: arterial line (DNR waived perioperatively)
--- NOTE | 2018-09-08 15:42 | ASMTCMCOM ---
CM Note CM Note Notes: CM attempted to meet with pt's a number of times as she is requesting a hospital note for her son and wanting a hospital bed. CM finally was able to contact her by cell ([phone]) as the numbers in the chart are landlines. Pt is coming out of surgery today, had an evacuation done on his brain. Pts wanted to speak tomorrow regarding CM needs. Family is requesting hospital bed. CM called [facility] and they said they are in network with pt's insurance and needs a script from the MD and a note saying why pt needs hospital bed to be faxed to:[phone]. CM needs to discuss with plan tomorrow. Dispo needs are still TBD, he as private care with with [facility] and has a life alert. He signed on with [facility]. Date Signed: 09/08/2018 03:42 PM Electronically Signed By:BUNNY Abdullahi
[2018-09-08] MEDS ORDERED: PROPOFOL/EMULSION 500 MG/50 ML BOTTLE IV ONE (15:43)
[2018-09-08] MEDS ORDERED: fentaNYL 250 MCG/5 ML INJ ONE (15:43)
[2018-09-08] MEDS ORDERED: ROCURONIUM 100 MG/10 ML VIAL ONE (15:45)
[2018-09-08] MEDS ORDERED: BACITRACIN ZINC 0.5 OZ OINTTUBE TP ONE ×2 (15:52→18:24)
[2018-09-08] MEDS ORDERED: THROMBIN (BOVINE) 20,000 UNIT VIAL TP ONE (15:52)
[2018-09-08] MEDS ORDERED: CHLORHEXIDINE GLUC HIBICLENS 118 ML BTL TP ONE (15:52)
[2018-09-08] MEDS ORDERED: AVITENE POWDER 1 GM JAR TP ONE (15:53)
[2018-09-08] MEDS ORDERED: MANNITOL 20% 100 GM/500 ML BAG IV ONE (15:55)
[2018-09-08] MEDS ORDERED: POVIDONE-IODINE 30 GM OINTTUBE TP ONE (15:55)
[2018-09-08] MEDS ORDERED: LR 1,000 ML IV ONE (16:01)
[2018-09-08] MEDS ORDERED: SURGIFLO MATRIX KIT WITH THROMBIN 8 ML TP ONE ×2 (16:10→17:40)
[2018-09-08] MEDS ORDERED: GENTAMICIN SULFATE 80 MG/2 ML VIAL ONE (16:11)
[2018-09-08] MEDS ORDERED: BUPIVACAINE/EPI 0.5% 30 ML SDV ONE (16:11)
[2018-09-08] MEDS ORDERED: niCARdipine/NACL 200 ML IV ONE (16:26)
[2018-09-08] MEDS ORDERED: levETIRAcetam 1000MG/NACL 100 ML IV ONE (16:27)
[2018-09-08] MEDS ORDERED: MIDAZOLAM 2 MG/2 ML VIAL IVP ONE (16:29)
[2018-09-08] MEDS ORDERED: MIDAZOLAM 2 MG/2 ML VIAL ONE (16:31)
[2018-09-08] MEDS ORDERED: ONDANSETRON 4 MG/2 ML VIAL ONE (18:08)
[2018-09-08] MEDS ORDERED: PHENYLEPHRINE HCL 100 MCG/ML SYR ONE (18:09)
[2018-09-08] MEDS ORDERED: ePHEDrine SULFATE 25 MG/5 ML SYR ONE (18:09)
[2018-09-08] MEDS ORDERED: SUGAMMADEX SODIUM 200 MG/2 ML VIAL IVP ONE (18:10)
[2018-09-08] MEDS ORDERED: NALOXONE HCL 0.4 MG/ML INJ IVP PRN (18:13)
[2018-09-08] MEDS ORDERED: fentaNYL 100 MCG/2 ML INJ IVP PRN (18:13)
[2018-09-08] MEDS ORDERED: PROMETHAZINE HCL 25 MG/ML INJ IVP PRN (18:13)
--- NOTE | 2018-09-08 18:13 | POSTANESTH ---
Post Anesthetic Evaluation Cardiovascular Status: Normal, Stable Respiratory Status: Normal, Stable Level of Consciousness/Mental Status: Can Participate in Eval, Mildly Sleepy, Arousable Pain Control: Adequate, Prn Tx Ordered Nausea/Vomiting Control: Adequate, Prn Tx Ordered Complications Possibly Related to Anesthesia: None Noted
[2018-09-08] MEDS ORDERED: niCARdipine/NACL 200 ML IV SCH (18:30)
[2018-09-08] MEDS ORDERED: POLYETHYLENE GLYCOL 3350 17 GM PKT PO PRN (18:32)
[2018-09-08] MEDS ORDERED: MAGNESIUM HYDROXIDE 30 ML UDCUP PO PRN (18:32)
[2018-09-08] MEDS ORDERED: BISACODYL 10 MG SUPP PR PRN (18:32)
[2018-09-08] MEDS ORDERED: LACTULOSE 20 GM/30 ML UDCUP PO PRN (18:32)
[2018-09-08] MEDS ORDERED: NS W/ 20 KCl/L 1,000 ML IV SCH (18:45)
--- NOTE | 2018-09-08 18:56 | POSTOPPROG ---
Post Op Note Date of Operation: 09/08/18 Surgeon: Brien Crandall Distributed Generation Project Manager: none Anesthesia: Epidural, GET(General Endotracheal) Pre-op Diagnosis: left frontal prostate tumor met with right leg and foot weakness Post-op Diagnosis: same Indication: right foot drop Procedure: left frontal craniotomy for tumor and ICH evacuation Findings: no issues, liquified bilobed clot Inf/Abcess present in the surg proc area at time of surgery?: No EBL: 50-100 Total fluids administered: per anestasia Complications: none
[2018-09-08] MEDS: LORazepam 0.5 MG TAB PO SCH (20:18)
[2018-09-08] MEDS: SENNOSIDES/DOCUSATE SODIUM TAB PO SCH (20:18)
[2018-09-08] MEDS: traMADol 50 MG TAB PO SCH (20:20)
[2018-09-08] MEDS: levETIRAcetam 750 MG in NS 100 ML IV SCH (21:23)
[2018-09-09] MEDS: DEXAMETHASONE 4 MG/ML VIAL IVP SCH ×2 (05:40→13:47)
--- NOTE | 2018-09-09 07:24 | NEUSURGPN ---
Assessment/Plan: 67 y/o male with hemorrhagic metastatic brain lesions with right foot weakness. now POD1 left frontal craniotomy for tumor and ICH evacuation -Post op head CT with expected finding, no new hemorrhage, report pending -DVT prophx: TEDs, SCDs, Lovenox POD2 - Will start slow Decadron taper -Okay to transfer to the floor -Discussed with Dr. Crandall -Please notify NS with any change in motor/neuro exam Subjective: Mild headache, decreased numbness in RLE Objective: NAD A&Ox3 CN II-XII grossly intact PERRLA, EOMI MAEx4 5/5 and equal in BEU and BLE, except Right foot 1/5 Incision c/d/i - Physician Discussed Patient with : Raz Neurosurgery Physical Exam - Vitals, I&O, Labs I and O 09/08/18 09/09/18 09/10/18 05:59 05:59 05:59 Intake Total 800 2461 Output Total 1525 Balance 800 936 Weight 79.832 kg Intake: Oral (ml) 800 980 IV Intake (ml) 1250 IV Infused (ml) 231 ceFAZolin 1 GM/DEXTROSE 50 50 ml @ 200 mls/hr IV Q8HRS [facility] Rx#:[id number] niCARdipine/NACL 200 ml @ 181 As Directed IV ONCALL ONE Rx#:[id number] Output: Urine (ml) 1475 Toilet 1025 Urinal 450 Estimated Blood Loss (ml) 50 Other: Number of Voids Toilet 3 Number of Stools Toilet 1 Vital Signs Temp Pulse Resp BP Pulse Ox 36.8 C 66 13 105/46 L 100 09/09/18 04:00 09/09/18 06:00 09/09/18 06:00 09/09/18 06:00 09/09/18 06:00 Laboratory Results 09/09/18 04:20 09/08/18 05:08 ICD10 Worksheet Patient Problems: Problems Problem Status Onset Prostate cancer Acute
[2018-09-09] MEDS: SERTRALINE HCL 25 MG TAB PO SCH (08:32)
[2018-09-09] MEDS: SENNOSIDES/DOCUSATE SODIUM TAB PO SCH ×2 (08:32→20:39)
[2018-09-09] MEDS: CHOLECALCIFEROL VIT D3 1,000 UNITS TAB PO SCH (08:32)
[2018-09-09] MEDS: ACETAMINOPHEN 500 MG TAB PO SCH ×3 (08:32→20:38)
[2018-09-09] MEDS: levETIRAcetam 750 MG in NS 100 ML IV SCH ×2 (08:32→20:42)
[2018-09-09] MEDS ORDERED: *MD ORDERING ONLY-DEXAMETHASONE TAPER IVP/PO SCH (12:15)
--- NOTE | 2018-09-09 13:58 | SOAPPROG ---
SOAP Progress Note Assessment/Plan: Assessment: 1. 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 L parietal hemorrhage due to dural metastasis s/p evacuation of hematoma Plan: - RT to see patient today or tomorrow. RT will likely start in 1 week or so. - will start Xtandi after RT. Pt understands that odds of meaningful response is relatively low. - transfuse RBC if hgb falls <7. 25 min spent w/ pt and in coordination of care. 09/09/18 13:58 Subjective: resting Objective: craniotomy scar c/d/i exam otherwise unchanged Vital Signs Temp Pulse Resp BP Pulse Ox 36.6 C 97 15 137/70 H 96 09/09/18 08:00 09/09/18 12:00 09/09/18 12:00 09/09/18 12:00 09/09/18 12:00 Laboratory Results 09/09/18 04:20 09/08/18 05:08 09/08/18 09/09/18 09/10/18 05:59 05:59 05:59 Intake Total 800 2461 Output Total 1525 600 Balance 800 936 -600 PT 16.6 SEC (12.0-15.0) H 09/08/18 15:00 INR 1.32 (0.83-1.16) H 09/08/18 15:00 ICD10 Worksheet Patient Problems: Problems Problem Status Onset Prostate cancer Acute - ICD10 Problem Qualifiers (1) Prostate cancer
[2018-09-09] MEDS: DEXAMETHASONE 4 MG TAB PO SCH ×2 (14:39→21:10)
--- NOTE | 2018-09-09 15:00 | HOSPPROG ---
Hospitalist Progress Note Assessment/Plan: 67 year old male admitted with RLE weakness. Has dural and brain mets of prostate cancer. Today is status post frontal craniotomy for tumor and ICH evacuation. RLE weakness 2/2 hemorrhagic brain mets- pod 1 status post frontal craniotomy. Neurosurgery following. 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 He was treated with Zytiga in 08/2017 when PSA continued to rise and spinal mets were discovered. Most recently, he completed cycle 3 of cabazitaxel and prednisone. -oncology saw today, plan for RT to start in about a week -start Xtandi after RT -transfuse if hgb below 7 H/O hypercalcemia of malignancy - s/p Zometa. Ca nl on admission. Anemia - suspect 2/2 chemo. Receives Aranesp per onc. No indication for transfusion currently. transfuse for hgb below 7 Depression - on SSRI DVT PPLX - defer pharm with brain bleed, SCD's Code status - DNR Dispo -continue inpatient, transfer to neuro unit. Possible DC in 1-2 days. Subjective: feels slightly dizzy and foggy from surgery yesterday. still RLE weak, no acute complaints or concerns. Objective: Vital Signs Temp Pulse Resp BP Pulse Ox 36.6 C 97 15 137/70 H 96 09/09/18 08:00 09/09/18 12:00 09/09/18 12:00 09/09/18 12:00 09/09/18 12:00 Laboratory Results 09/09/18 04:20 09/08/18 05:08 09/08/18 09/09/18 09/10/18 05:59 05:59 05:59 Intake Total 800 2461 Output Total 1525 600 Balance 800 936 -600 PT 16.6 SEC (12.0-15.0) H 09/08/18 15:00 INR 1.32 (0.83-1.16) H 09/08/18 15:00 - Physical Exam Constitutional: no apparent distress, appears nourished, not in pain Eyes: PERRL, anicteric sclera, EOMI, other (blepharitis, irritation and edema to upper and lower eyelids. ) Ears, Nose, Mouth, Throat: moist mucous membranes, hearing normal, ears appear normal, no oral mucosal ulcers, other Cardiovascular: regular rate and rhythym, no murmur, rub, or gallop, irregularly irregular Respiratory: no respiratory distress, no rales or rhonchi, clear to auscultation Gastrointestinal: normoactive bowel sounds, soft, non-tender abdomen, no palpable masses Genitourinary: no bladder fullness, no bladder tenderness, no renal bruits Skin: no rashes or abrasions, no fluctuance, no induration Musculoskeletal: full muscle strength, no muscle tenderness, normal joint ROM Neurologic: AAOx3, sensation intact bilaterally, weakness, other (still with weakness on dorsiflexion of LE.) Psychiatric: interacting appropriately, not anxious, not encephalopathic, thought process linear Lymph, Heme, Immunologic: no cervical LAD, no supraclavicular LAD ICD10 Worksheet Patient Problems: Problems Problem Status Onset Prostate cancer Acute
--- NOTE | 2018-09-09 17:23 | ASMTCMCOM ---
CM Note CM Note Notes: 09/09/2018 Case Management Note Pt is s/p crainotomy. PT is recommending inpatient rehab. Please see Елена's note. Met twice with today. Faxed referrals to [facility], [facility], [facility] and [facility]. Faxed prescription and records to [facility]. They are arranging bed delivery with . Provided letter as requested by stating pt had been admitted to [facility] [place] for treatment. Contacted ventilating engineer at request to complete [facility] paperwork. to activate nursing home care insurance. Per it has a 60 day lag before it covers unskilled care in the home. Per , they are not pursuing chemo and are awaiting recommendations if radiation is appropriate. Discussed with Isabel donnelly [facility]. Isabel to visit with patient and . Pt was sleeping both times case management met with . Case Management d/c poc: SNF rehab vs home with home care and unskilled care. Case Management to follow. Date Signed: 09/09/2018 05:22 PM Electronically Signed By:Lesia Cowart RN
[2018-09-09] MEDS: LORazepam 0.5 MG TAB PO SCH (20:38)
[2018-09-09] MEDS: traMADol 50 MG TAB PO SCH (20:38)
[2018-09-10] MEDS: DEXAMETHASONE 4 MG TAB PO SCH ×3 (06:15→21:38)
[2018-09-10 06:25] LABS: PLATELET COUNT 265 10^3/uL (150-400)
[2018-09-10] MEDS: SERTRALINE HCL 25 MG TAB PO SCH (08:02)
[2018-09-10] MEDS: levETIRAcetam 500 MG TAB PO SCH ×2 (08:03→21:39)
[2018-09-10] MEDS: CHOLECALCIFEROL VIT D3 1,000 UNITS TAB PO SCH (08:03)
[2018-09-10] MEDS: ACETAMINOPHEN 500 MG TAB PO SCH ×3 (08:51→21:39)
[2018-09-10] MEDS: SENNOSIDES/DOCUSATE SODIUM TAB PO SCH ×2 (08:52→21:39)
--- NOTE | 2018-09-10 09:34 | NEUSURGPN ---
Assessment/Plan: 67 y/o male with hemorrhagic metastatic brain lesions with right foot weakness. Now POD2 left frontal craniotomy for tumor and ICH evacuation -Post op head CT with expected finding, no new hemorrhage, report pending -DVT prophx: TEDs, SCDs, Lovenox -Continue Decadron taper -Discussed with Dr. Crandall -[place] to d/c from neurosurgery prospective. Patient should follow up with Dr. Crandall in 2-3 weeks -Please notify NS with any change in motor/neuro exam Subjective: Denies any headache, nausea, dizziness Objective: NAD A&Ox3 CN II-XII grossly intact PERRLA, EOMI MAEx4 5/5 and equal in BEU and BLE, except right foot 1+/5 Incision c/d/i - Physician Discussed Patient with : Raz Neurosurgery Physical Exam - Vitals, I&O, Labs I and O 09/09/18 09/10/18 09/11/18 05:59 05:59 05:59 Intake Total 2461 650 Output Total 1525 1450 Balance 936 -800 Weight 79.832 kg Intake: Oral (ml) 980 500 IV Intake (ml) 1250 IV Infused (ml) 231 150 ceFAZolin 1 GM/DEXTROSE 50 50 50 ml @ 200 mls/hr IV Q8HRS [facility] Rx#:[id number] levETIRAcetam 750 mg In 100 Ns 100 ml @ 430 mls/hr IV BID [facility] Rx#:[id number] niCARdipine/NACL 200 ml @ 181 As Directed IV ONCALL ONE Rx#:[id number] Output: Urine (ml) 1475 1450 Toilet 1025 1150 Urinal 450 300 Estimated Blood Loss (ml) 50 Other: Number of Voids Toilet 3 Number of Stools Toilet 1 Vital Signs Temp Pulse Resp BP Pulse Ox 36.5 C 73 18 126/58 H 97 09/10/18 07:16 09/10/18 07:16 09/10/18 07:16 09/10/18 07:16 09/10/18 07:16 Laboratory Results 09/10/18 05:50 09/10/18 05:50 ICD10 Worksheet Patient Problems: Problems Problem Status Onset Prostate cancer Acute
--- NOTE | 2018-09-10 12:38 | GCON ---
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 PATIENT IDENTIFICATION: The patient a 67-year-old gentleman with an initial diagnosis of [place] 4 + 5 adenocarcinoma of the prostate, stage IIIC, diagnosed in June 2014, treated with initial radic al prostatectomy and adjuvant radiation therapy as well as androgen-deprivation therapy. He had a re currence of his prostate cancer and has been on multiple lines of systemic treatment. 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 Dr. Mart Crandall performed an evacuation of the hematoma, and I am being consulted regarding the role of whole-brain radiation. HISTORY OF PRESENT ILLNESS: Once again as discussed above, the patient was initially diagnosed with stage IIIC [place] 9 prostate adenocarcinoma in June of 2014. Treated by radical prostatectomy a nd adjuvant radiation as well as adjuvant androgen-deprivation therapy at the [facility]. In July 2017, he had a rising PSA and was placed on Provenge at that [facility], but the PSA continued to rise. He received Zytiga, Taxotere, most recently cabazitaxel, with the last dose being on September 03, 2018. Prior to his presentation to the hospital, the patient had developed increasing weakness of his lower extremity. It was recommended he go to the emergency department for evaluation. Once he was evalua rosy at [facility], he had an MRI of his brain that revealed extensive features of dural metastatic disease. A 5 cm dural-based mass at the right parietal convexity with extension through the superior sagittal sinus at midline and to the left parietal paramidline meninges. This was associated with a high lef t parietal multilobulated cortical parenchymal hematoma, measuring 4.3 cm in size with mild local mas s effect. 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 He had a small to moderate r ight subdural hematoma and extensive osseous metastatic disease throughout the bony calvarium. MRI o f the lumbar spine revealed extensive osseous metastatic disease throughout the lower thoracic, lumba r, and upper sacral spine without evidence of tumor extension into the lumbar spinal canal. Minimal features of degenerative disk disease. MRI of the cervical spine once again revealed extensive metas tases from C5-T2. No evidence of tumor extension into the cervical spinal canal or abnormal signal w ithin the cervical spinal cord. MRI of thoracic spine once again revealed extensive osseous metastat ic disease with a 2.2 cm epidural tumor at T7-T8 with some moderate right lateral recess narrowing an d no cord impingement. On September 08, 2018, Dr. Mart Crandall performed a left frontal craniotomy with intracranial hematoma evacuation. The patient has been stable since that operation. INTERVAL HISTORY: Overall, the patient feels better since having his craniotomy and hematoma evacuat ion. He is now reporting more strength in his right lower extremity. He still has issues with prona tion and flexion of his right foot. He is on fall precautions here in the hospital but does feel com fortable going home and walking around with some support. He has been ambulating with assistance fro m his bed to his chair and is seen today sitting comfortably in his hospital chair with his legs up. His incision seems to be well healed, although it is bandaged. He denies any infection or bleeding from the incision. Denies any headaches, nausea, vomiting, recent weight loss. Overall he denies an y weakness in any of the other arms or legs. No seizure-like activity. PAST MEDICAL HISTORY: 1. Metastatic prostate cancer as discussed above. 2. Beta-lactam resistant bacteria in the urine, not active. Treated prior. 3. Otherwise unremarkable. PAST SURGICAL HISTORY: 1. Please see above for recent craniotomy. 2. Radical prostatectomy in 2013. FAMILY HISTORY: Prostate cancer in his father and uncle in their 70s. 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 He does play musical instruments as a hobby. No smoking or alcohol use. MEDICATIONS: 1. Tylenol as needed. 2. Hydrocodone/Tylenol. 3. Dulcolax. 4. Vitamin D. 5. Dexamethasone 4 mg p.o. q.8. 6. Lovenox. 7. Dilaudid as needed. 8. Lactulose. 9. Keppra. 10. Ativan. 11. Milk of magnesia. 12. Cardene as needed. ALLERGIES: No known drug allergies. PHYSICAL EXAM: VITAL SIGNS: Blood pressure 126/58. Heart rate is 73. Oxygen sat is 97%. Temp is 36.5. GENERAL: The patient is a moderately ill-appearing but pleasant 67-year-old gentleman who is in no acute distress and alert and oriented x3. CARDIOVASCULAR: Regular rate and rhythm. Normal S1 , S2. No murmurs, rubs, or gallops. LUNGS: Clear to auscultation bilaterally. No wheezes, crackle s, or rubs. ABDOMEN: Soft and nontender, nondistended. Bowel sounds are present. HEAD AND NECK: He has a craniotomy incision that is bandaged with zev in place. I did not undo the bandage, but there does not appear to be any discharge or drainage on the bandage. He has appropriate tenderness to palpation. NEUROLOGIC: Full exam deferred. He does have 0/5 movement in his right foot with ab ove 4/5 strength in his proximal and distal right leg muscle groups. LABS: Hemoglobin is 7.4. Hematocrit is 24.5. Platelets are 265. ANC 5.58. Of note, he did test p ositive for beta-lactam resistant bacteria previously in his urine but nothing currently during this hospitalization. IMAGING: Please see HPI above. PATHOLOGY: Metastatic prostate cancer. ASSESSMENT AND PLAN: The patient is a 67-year-old gentleman with widely metastatic prostate adenocar cinoma, status post multiple lines of recent systemic treatment. 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 I am being co nsulted regarding the role of palliative radiation to his brain disease. I had a long discussion with the patient today in his hospital room regarding diagnosis and managemen t of his metastatic prostate cancer. I reviewed his initial workup and diagnosis as well as the scan s in detail with him today. He seems to be doing better after his recent craniotomy and hematoma katia cuation and does think that he will be able to be discharged home soon as he feels comfortable with a mbulating. His is currently ordering a hospital bed to facilitate more comfortable positions in bed. I have spoken with Dr. Crandall and Dr. Harper at length regarding the patient's case. Dr. Milagro plascencia would like him to heal a little bit more from his craniotomy before proceeding with radiation an d would like him to tentatively start radiation at the end of next week. I had a long discussion with the patient regarding the role and logistics of radiation for intracrani al metastasis from prostate cancer. We both discussed that he is getting fewer benefits if any from systemic treatment, and per Dr. Harper, there are not many other options that can help control the patient's disease. I discussed with the patient that the with the goals of radiation would be to slo w the progression of his intracranial tumors and prevent the likelihood of bleeding in the future. I n order to accomplish that, I recommend a course of whole-brain radiation over 10 fractions to a dose of 30 Gy. I discussed that the whole brain is necessary to control the entire meninges and likely c an target some of his calvarial lesions that do not seem to be terribly symptomatic but could in the future. After whole-brain radiation is complete, if he is doing okay, may discuss future systemic th erapy options with Dr. Harper. We had a long discussion regarding the risks, benefits, acute and long-term side effect profile of ex ternal beam to the whole brain. This would include fatigue, nausea, vomiting, headaches, weakness in arm or leg, pain flare, poor wound healing from his incision, less likely seizure or permanent brain damage. Long-term toxicity could include neurocognitive decline such as inability to process compli cated situations or questions, short-term memory deficits, long-term memory deficits, permanent damag e to his brain, inability to control his tumor, and secondary cancer from radiation. At this point, the patient does seem to understand his condition and his prognosis and wishes to be s omewhat aggressive with controlling the tumors in his brain and therefore does wish to proceed with r adiation. We currently have him scheduled for a CT simulation next week on September 15, 2018, at noon . The goal is to start his treatment on September 16, 2018, for a duration of 10 treatments. I did ex change contact information as well as educational material regarding brain radiation with the patient today. I encouraged him to call with any questions or concerns in the interim, but we will see him in our department next week for radiation planning. /[id number]/MODL
--- NOTE | 2018-09-10 12:48 | HOSPPROG ---
Hospitalist Progress Note Assessment/Plan: 67 year old male admitted with RLE weakness. 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 RLE weakness 2/2 hemorrhagic brain mets- pod 2 status post frontal craniotomy. Neurosurgery following who has cleared Mr. 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 He was treated with Zytiga in 08/2017 when PSA continued to rise and spinal mets were discovered. Most recently, he completed cycle 3 of cabazitaxel and prednisone. -oncology saw today, plan for RT to start in about a week, although family is uncertain that they want to move in that direction. -start Xtandi after RT if family amenable. -transfuse if hgb below 7 H/O hypercalcemia of malignancy - s/p Zometa. Ca nl on admission. Anemia - suspect 2/2 chemo. Receives Aranesp per onc. No indication for transfusion currently. transfuse for hgb below 7 Depression - on SSRI DVT PPLX - defer pharm with brain bleed, SCD's Code status - DNR Dispo -Transfer to SNF today if accepted. Working with CM. Objective: Vital Signs Temp Pulse Resp BP Pulse Ox 36.5 C 80 16 140/66 H 98 09/10/18 07:16 09/10/18 12:17 09/10/18 12:17 09/10/18 12:17 09/10/18 12:17 Laboratory Results 09/10/18 05:50 09/10/18 05:50 09/09/18 09/10/18 09/11/18 05:59 05:59 05:59 Intake Total 2461 650 Output Total 1525 1450 Balance 936 -800 PT 16.6 SEC (12.0-15.0) H 09/08/18 15:00 INR 1.32 (0.83-1.16) H 09/08/18 15:00 - Physical Exam Constitutional: no apparent distress, appears nourished, not in pain Eyes: PERRL, anicteric sclera, EOMI, other (severe swelling of tissue above and below eyes. ) Ears, Nose, Mouth, Throat: moist mucous membranes, hearing normal, ears appear normal, no oral mucosal ulcers Cardiovascular: regular rate and rhythym, no murmur, rub, or gallop Respiratory: no respiratory distress, no rales or rhonchi, clear to auscultation Gastrointestinal: normoactive bowel sounds, soft, non-tender abdomen, no palpable masses, rebound Genitourinary: no bladder fullness, no bladder tenderness, no renal bruits Skin: no rashes or abrasions, no fluctuance, no induration Musculoskeletal: full muscle strength, no muscle tenderness, normal joint ROM Neurologic: AAOx3, sensation intact bilaterally, weakness, other (right leg and ankle weakness. ) Psychiatric: interacting appropriately, not anxious, not encephalopathic, thought process linear Lymph, Heme, Immunologic: no cervical LAD, no supraclavicular LAD ICD10 Worksheet Patient Problems: Problems Problem Status Onset Prostate cancer Acute
--- NOTE | 2018-09-10 13:09 | SOAPPROG ---
SOAP Progress Note Assessment/Plan: Assessment: 1. 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 L parietal hemorrhage due to dural metastasis s/p evacuation of hematoma Plan: - RT to start next - rehab when stable - will start Xtandi (anti-androgen) 1 week after completion of Rx. Drug is scheduled to be delivered to pt next week - f/u in my clinic 1-2 weeks after starting Xtandi to evaluate for side effects. 25 min spent w/ pt and in coordination of care. Subjective: feeling well,. some additional movement in R foot. Objective: exam unchanged Vital Signs Temp Pulse Resp BP Pulse Ox 36.5 C 80 16 140/66 H 98 09/10/18 07:16 09/10/18 12:17 09/10/18 12:17 09/10/18 12:17 09/10/18 12:17 Laboratory Results 09/10/18 05:50 09/10/18 05:50 09/09/18 09/10/18 09/11/18 05:59 05:59 05:59 Intake Total 2461 650 Output Total 1525 1450 Balance 936 -800 PT 16.6 SEC (12.0-15.0) H 09/08/18 15:00 INR 1.32 (0.83-1.16) H 09/08/18 15:00 ICD10 Worksheet Patient Problems: Problems Problem Status Onset Prostate cancer Acute - ICD10 Problem Qualifiers (1) Prostate cancer
[2018-09-10] MEDS: ENOXAPARIN 40 MG/0.4 ML SYR SC SCH (18:07)
--- NOTE | 2018-09-10 20:51 | ASMTCMCOM ---
CM Note CM Note Notes: 09/10/2018 Case Management Note Met w/pt and to discuss SNF rehab pick. Discussed with MD who is planning on radiation treatments starting next week. Pt chose [facility]. Confirmed with Chayo from [facility] that transport to and from treatment is possible. Authorization was initiated but not approved by insurance at close of business day today. [facility] to start auth again on Thursday. Confirmed hospital bed was delivered at pt home today. Case Management d/c poc: [facility] pending auth Case Management to follow. Date Signed: 09/10/2018 04:59 PM Electronically Signed By:Lesia Cowart RN
[2018-09-10] MEDS: LORazepam 0.5 MG TAB PO SCH (21:40)
[2018-09-10] MEDS: traMADol 50 MG TAB PO SCH (21:40)
[2018-09-11 05:38] LABS: PLATELET COUNT 234 10^3/uL (150-400)
[2018-09-11] MEDS: DEXAMETHASONE 4 MG TAB PO SCH ×3 (05:49→21:07)
[2018-09-11] MEDS: levETIRAcetam 500 MG TAB PO SCH ×2 (09:30→21:05)
[2018-09-11] MEDS: SENNOSIDES/DOCUSATE SODIUM TAB PO SCH ×3 (09:31→21:07)
[2018-09-11] MEDS: CHOLECALCIFEROL VIT D3 1,000 UNITS TAB PO SCH (09:31)
[2018-09-11] MEDS: SERTRALINE HCL 25 MG TAB PO SCH (09:32)
[2018-09-11] MEDS: ACETAMINOPHEN 500 MG TAB PO SCH ×3 (09:32→23:57)
--- NOTE | 2018-09-11 10:23 | NEUSURGPN ---
Date of Surgery: 09/08/18 Post Op Day: 3 Assessment/Plan: 67 y/o male with hemorrhagic metastatic brain lesions with right foot weakness. Now POD#3 left frontal craniotomy for tumor and ICH evacuation -Post op head CT with expected finding, no new hemorrhage -DVT prophx: TEDs, SCDs, Lovenox -Continue Decadron taper -Remove dressing today -Ok to shower today and then daily after. Wash hair with baby shampoo -Discussed with Dr. Raz Aquino to d/c from neurosurgery prospective. Patient should follow up with Dr. Crandall in 2-3 weeks -Please notify NS with any change in motor/neuro exam Subjective: Sitting in chair, feels some strength returning in right toes Objective: AxO x4 PERRLA/EOMI CN 2-12 grossly intact MARx4 5/5 BUE, LLE right TA/EHL 1/5 Dressing CDI Neuro Check Frequency: per routine Urinary Catheter in Place: No - Physician Discussed Patient with : Raz Neurosurgery Physical Exam - Vitals, I&O, Labs I and O 09/10/18 09/11/18 09/12/18 05:59 05:59 05:59 Intake Total 650 1300 200 Output Total 1450 525 400 Balance -800 775 -200 Intake: Oral (ml) 500 1300 200 IV Infused (ml) 150 ceFAZolin 1 GM/DEXTROSE 50 50 ml @ 200 mls/hr IV Q8HRS [facility] Rx#:[id number] levETIRAcetam 750 mg In 100 Ns 100 ml @ 430 mls/hr IV BID [facility]ON[facility] Rx#:[id number] Output: Urine (ml) 1450 525 400 Toilet 1150 300 Urinal 300 225 400 Other: Intake Quantity Yes Sufficient Number of Voids Toilet 3 1 Urinal 1 Number of Stools Toilet 1 1 Vital Signs Temp Pulse Resp BP Pulse Ox 36.9 C 87 18 136/85 H 99 09/11/18 08:00 09/11/18 08:00 09/11/18 08:00 09/11/18 08:00 09/11/18 08:00 Laboratory Results 09/11/18 05:15 09/11/18 05:15 ICD10 Worksheet Patient Problems: Problems Problem Status Onset Prostate cancer Acute
--- NOTE | 2018-09-11 14:08 | HOSPPROG ---
Hospitalist Progress Note Assessment/Plan: 67 year old male admitted with RLE weakness. 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 RLE weakness 2/2 hemorrhagic brain mets- pod 2 status post frontal craniotomy. Neurosurgery following who has cleared Mr. Flynn for discharge from their standpoint -dex taper -neurosurgery following -PT/OT -hospital bed at home due to debility and layout of home. 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 He was treated with Zytiga in 08/2017 when PSA continued to rise and spinal mets were discovered. Most recently, he completed cycle 3 of cabazitaxel and prednisone. -oncology saw today, plan for RT to start next week. -start Xtandi after RT if family amenable. -transfuse if hgb below 7 H/O hypercalcemia of malignancy - s/p Zometa. Ca nl on admission. Anemia - suspect 2/2 chemo. Receives Aranesp per onc. No indication for transfusion currently. transfuse for hgb below 7 Depression - on SSRI DVT PPLX - defer pharm with brain bleed, SCD's Code status - DNR Dispo -transfer to snf likely thursday. SNF not able to evaluate him until thursday. Subjective: I is less swollen today, feels like he is able to clench his toes slightly more. No pain Objective: Vital Signs Temp Pulse Resp BP Pulse Ox 36.9 C 87 18 136/85 H 99 09/11/18 08:00 09/11/18 08:00 09/11/18 08:00 09/11/18 08:00 09/11/18 08:00 Laboratory Results 09/11/18 05:15 09/11/18 05:15 09/10/18 09/11/18 09/12/18 05:59 05:59 05:59 Intake Total 650 1300 500 Output Total 1450 525 650 Balance -800 775 -150 PT 16.6 SEC (12.0-15.0) H 09/08/18 15:00 INR 1.32 (0.83-1.16) H 01/23/19 15:00 - Physical Exam Constitutional: no apparent distress, appears nourished, not in pain Eyes: PERRL, anicteric sclera, EOMI, other (blepharitis of eyelids bilaterally, less swollen today. ) Ears, Nose, Mouth, Throat: moist mucous membranes, hearing normal, ears appear normal, no oral mucosal ulcers Cardiovascular: regular rate and rhythym, no murmur, rub, or gallop Respiratory: no respiratory distress, no rales or rhonchi, clear to auscultation Gastrointestinal: normoactive bowel sounds, soft, non-tender abdomen, no palpable masses Genitourinary: no bladder fullness, no bladder tenderness, no renal bruits Skin: no rashes or abrasions, no fluctuance, no induration Musculoskeletal: full muscle strength, no muscle tenderness, normal joint ROM Neurologic: other (Left foot and ankle weakness essentially unchanged) Psychiatric: interacting appropriately, not anxious, not encephalopathic, thought process linear Lymph, Heme, Immunologic: no cervical LAD, no supraclavicular LAD ICD10 Worksheet Patient Problems: Problems Problem Status Onset Prostate cancer Acute
[2018-09-11] MEDS: ENOXAPARIN 40 MG/0.4 ML SYR SC SCH (17:46)
[2018-09-11] MEDS: traMADol 50 MG TAB PO SCH (21:06)
[2018-09-11] MEDS: LORazepam 0.5 MG TAB PO SCH (21:07)
[2018-09-12] MEDS: DEXAMETHASONE 4 MG TAB PO SCH ×3 (05:41→21:12)
[2018-09-12 05:48] LABS: PLATELET COUNT 287 10^3/uL (150-400)
[2018-09-12] MEDS: CHOLECALCIFEROL VIT D3 1,000 UNITS TAB PO SCH (09:03)
[2018-09-12] MEDS: levETIRAcetam 500 MG TAB PO SCH ×2 (09:03→21:12)
[2018-09-12] MEDS: SERTRALINE HCL 25 MG TAB PO SCH (09:04)
[2018-09-12] MEDS: ACETAMINOPHEN 500 MG TAB PO SCH ×3 (09:05→21:12)
[2018-09-12] MEDS: SENNOSIDES/DOCUSATE SODIUM TAB PO SCH ×2 (09:08→21:13)
--- NOTE | 2018-09-12 09:12 | ASMTCMCOM ---
CM Note CM Note Notes: Chart reviewed. Patient plan of care unchanged at this point still awaiting [facility] in [place] to acquire insurance authorization for admission to SNF. CM available should other needs arise. Plan: To SNF rehab potentially tomorrow. Date Signed: 09/12/2018 09:11 AM Electronically Signed By:Alice Gaona RN
--- NOTE | 2018-09-12 09:47 | NEUSURGPN ---
Date of Surgery: 09/08/18 Post Op Day: 4 Assessment/Plan: 67 y/o male with hemorrhagic metastatic brain lesions with right foot weakness. Now POD#4 left frontal craniotomy for tumor and ICH evacuation -Post op head CT with expected finding, no new hemorrhage -DVT prophx: TEDs, SCDs, Lovenox -Continue Decadron taper -Ok to shower daily with baby shampoo -Discussed with Dr. Crandall -[place] to d/c from neurosurgery prospective. Patient should follow up with Dr. Crandall in 2-3 weeks -Case management working on dispo options, likely discharge tomorrow pending insurance -Please notify NS with any change in motor/neuro exam Discussed patient with Dr Crandall Subjective: feels right foot and ankle is getting stronger Objective: AxO x4 PERRLA/EOMI CN 2-12 grossly intact MAEx4 Right TA/ELH 1-2/5 BUE, LLE 5/5 Incision CDI with zev Neuro Check Frequency: per routine Urinary Catheter in Place: No - Physician Discussed Patient with Dr.: Crandall Neurosurgery Physical Exam - Vitals, I&O, Labs I and O 09/11/18 09/12/18 09/13/18 05:59 05:59 05:59 Intake Total 1300 1300 500 Output Total 525 950 250 Balance 775 350 250 Intake: Oral (ml) 1300 1300 500 Output: Urine (ml) 525 950 250 Toilet 300 550 250 Urinal 225 400 Other: Intake Quantity Yes Yes Sufficient Number of Voids Toilet 1 1 1 Urinal 1 Number of Stools Toilet 1 1 Vital Signs Temp Pulse Resp BP Pulse Ox 36.9 C 76 17 140/77 H 96 09/12/18 08:00 09/12/18 08:00 09/12/18 08:00 09/12/18 08:00 09/12/18 08:00 Laboratory Results 09/12/18 04:26 09/12/18 04:26 ICD10 Worksheet Patient Problems: Problems Problem Status Onset Prostate cancer Acute
--- NOTE | 2018-09-12 16:17 | HOSPPROG ---
Hospitalist Progress Note Assessment/Plan: 67 year old male admitted with RLE weakness. 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 RLE weakness 2/2 hemorrhagic brain mets- pod 2 status post frontal craniotomy. Neurosurgery following who has cleared Mr. Flynn for discharge from their standpoint -dex taper -neurosurgery following -PT/OT -hospital bed at home due to debility and layout of home. 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 He was treated with Zytiga in 08/2017 when PSA continued to rise and spinal mets were discovered. Most recently, he completed cycle 3 of cabazitaxel and prednisone. -oncology saw today, plan for RT to start next week. -start Xtandi after RT if family amenable. -transfuse if hgb below 7 H/O hypercalcemia of malignancy - s/p Zometa. Ca nl on admission. Anemia - suspect 2/2 chemo. Receives Aranesp per onc. No indication for transfusion currently. transfuse for hgb below 7 Blepharitis- patient states this is an allergic reaction he gets every time he stays at a hotel or somewhere with a different soaps. Seems to be responsive to Benadryl. Will continue with this Depression - on SSRI DVT PPLX - defer pharm with brain bleed, SCD's Code status - DNR Dispo -transfer to snf thursday. SNF not able to evaluate him until then Subjective: No real change today. Swelling mildly better, right foot weakness essentially unchanged. Objective: Vital Signs Temp Pulse Resp BP Pulse Ox 36.9 C 76 17 140/77 H 96 09/12/18 08:00 09/12/18 08:00 09/12/18 08:00 09/12/18 08:00 09/12/18 08:00 Laboratory Results 09/12/18 04:26 09/12/18 04:26 09/11/18 09/12/18 09/13/18 05:59 05:59 05:59 Intake Total 1300 1300 500 Output Total 525 950 250 Balance 775 350 250 PT 16.6 SEC (12.0-15.0) H 09/08/18 15:00 INR 1.32 (0.83-1.16) H 09/08/18 15:00 - Physical Exam Constitutional: no apparent distress, appears nourished, not in pain Eyes: PERRL, anicteric sclera, EOMI Ears, Nose, Mouth, Throat: moist mucous membranes, hearing normal, ears appear normal, no oral mucosal ulcers Cardiovascular: regular rate and rhythym, no murmur, rub, or gallop Respiratory: no respiratory distress, no rales or rhonchi, clear to auscultation Gastrointestinal: normoactive bowel sounds, soft, non-tender abdomen, no palpable masses Genitourinary: no bladder fullness, no bladder tenderness, no renal bruits Skin: no rashes or abrasions, no fluctuance, no induration Musculoskeletal: no muscle tenderness, normal joint ROM, other (Weakness and right foot and toes remains unchanged) Neurologic: AAOx3, sensation intact bilaterally, other (Weakness and right foot remains unchanged) Psychiatric: interacting appropriately, not anxious, not encephalopathic, thought process linear Lymph, Heme, Immunologic: no cervical LAD, no supraclavicular LAD ICD10 Worksheet Patient Problems: Problems Problem Status Onset Prostate cancer Acute
[2018-09-12] MEDS: ENOXAPARIN 40 MG/0.4 ML SYR SC SCH (18:27)
[2018-09-12] MEDS: traMADol 50 MG TAB PO SCH (21:12)
[2018-09-12] MEDS: LORazepam 0.5 MG TAB PO SCH (21:12)
[2018-09-12] MEDS ORDERED: diphenhydrAMINE 25 MG CAP PO PRN (22:40)
[2018-09-13 04:53] LABS: PLATELET COUNT 265 10^3/uL (150-400)
[2018-09-13] MEDS: levETIRAcetam 500 MG TAB PO SCH (08:42)
[2018-09-13] MEDS: CHOLECALCIFEROL VIT D3 1,000 UNITS TAB PO SCH (08:42)
[2018-09-13] MEDS: SENNOSIDES/DOCUSATE SODIUM TAB PO SCH (08:43)
[2018-09-13] MEDS: SERTRALINE HCL 25 MG TAB PO SCH (08:43)
[2018-09-13] MEDS: ACETAMINOPHEN 500 MG TAB PO SCH ×2 (08:47→15:48)
[2018-09-13] MEDS ORDERED: DEXAMETHASONE 4 MG TAB PO SCH (09:00)
--- NOTE | 2018-09-13 09:15 | NEUSURGPN ---
Assessment/Plan: 67 y/o male with hemorrhagic metastatic brain lesions with right foot weakness. Now POD#5 left frontal craniotomy for tumor and ICH evacuation -Post op head CT with expected finding, no new hemorrhage -DVT prophx: TEDs, SCDs, Lovenox -Continue Decadron taper -Ok to shower daily with baby shampoo -Okay to d/c from neurosurgery prospective. Patient should follow up with Dr. Crandall in 2-3 weeks -Case management working on dispo options, discharge pending insurance -Please notify NS with any change in motor/neuro exam Discussed patient with Dr Crandall Subjective: feels right foot sensation and strength is improving Objective: AxO x4 PERRLA/EOMI CN 2-12 grossly intact MAEx4 Right TA/ELH 3/5 BUE, LLE 5/5 Incision CDI with zev - Physician Discussed Patient with : Raz Neurosurgery Physical Exam - Vitals, I&O, Labs I and O 09/12/18 09/13/18 09/14/18 05:59 05:59 05:59 Intake Total 1300 1000 800 Output Total 950 250 300 Balance 350 750 500 Intake: Oral (ml) 1300 1000 800 Output: Urine (ml) 950 250 300 Toilet 550 250 Urinal 400 300 Other: Intake Quantity Yes Yes Sufficient Number of Voids Toilet 1 1 Urinal 1 Number of Stools Toilet 1 Vital Signs Temp Pulse Resp BP Pulse Ox 36.7 C 80 16 156/86 H 98 09/13/18 07:41 09/13/18 07:41 09/13/18 07:41 09/13/18 07:41 09/13/18 07:41 Laboratory Results 09/13/18 04:25 09/13/18 04:25 ICD10 Worksheet Patient Problems: Problems Problem Status Onset Prostate cancer Acute
--- NOTE | 2018-09-13 14:31 | HOSPPROG ---
Hospitalist Progress Note Assessment/Plan: 67 year old male admitted with RLE weakness. 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 RLE weakness 2/2 hemorrhagic brain mets- pod 2 status post frontal craniotomy. Neurosurgery following who has cleared Mr. Flynn for discharge from their standpoint dex taper neurosurgery following PT/OT hospital bed at home due to debility and layout of home. 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 He was treated with Zytiga in 08/2017 when PSA continued to rise and spinal mets were discovered. Most recently, he completed cycle 3 of cabazitaxel and prednisone. oncology saw today, plan for RT to start next week. start Xtandi after RT if family amenable. transfuse if hgb below 7 H/O hypercalcemia of malignancy - s/p Zometa. Ca nl on admission. Anemia - suspect 2/2 chemo. Receives Aranesp per onc. No indication for transfusion currently. transfuse for hgb below 7 Blepharitis- patient states this is an allergic reaction he gets every time he stays at a hotel or somewhere with a different soaps. Seems to be responsive to Benadryl. Will continue with this Depression - on SSRI DVT PPLX - defer pharm with brain bleed, SCD's Code status - DNR Dispo -to SNF > 30 minutes on dc Subjective: has bed at SNF Objective: Vital Signs Temp Pulse Resp BP Pulse Ox 36.7 C 80 16 156/86 H 98 09/13/18 07:41 09/13/18 07:41 09/13/18 07:41 09/13/18 07:41 09/13/18 07:41 Laboratory Results 09/13/18 04:25 09/13/18 04:25 09/12/18 09/13/18 09/14/18 05:59 05:59 05:59 Intake Total 1300 1000 800 Output Total 950 250 300 Balance 350 750 500 PT 16.6 SEC (12.0-15.0) H 09/08/18 15:00 INR 1.32 (0.83-1.16) H 09/08/18 15:00 - Physical Exam Constitutional: no apparent distress, appears nourished Eyes: PERRL, anicteric sclera Ears, Nose, Mouth, Throat: moist mucous membranes, hearing normal Cardiovascular: regular rate and rhythym, no murmur, rub, or gallop Respiratory: no respiratory distress, no rales or rhonchi Gastrointestinal: normoactive bowel sounds, soft, non-tender abdomen Genitourinary: no bladder fullness, No rubio in urethra Skin: warm, normal color Musculoskeletal: full muscle strength ICD10 Worksheet Patient Problems: Problems Problem Status Onset Prostate cancer Acute
--- NOTE | 2018-09-13 14:42 | PDIAF ---
- Diagnosis Diagnosis: metastatic prostate cancer Code Status: Do Not Resuscitate - Medication Management Additional Medication Instructions: patient is being discharged on dexamethasone taper. instructions in medication orders, but, to reiterate, it is : 4 mg po q 12 for 3 days. 2 mg po q 12 for 4 days. 2 mg po daily for 4 days. stop. resume prednisone 10 mg po daily thereafter Discharge Medications: electronically signed and located in the Home Medication List. - Orders Services needed: Registered Nurse, Certified Continuous Vulcanizing Machine Operator, Master Photo Journalist , Physical Therapy, Occupational Therapy, Speech Language Pathologist Isolation Type: Contact Isolation Diet Recommendation: no restrictions on diet Diet Texture: Regular Texture Diet, Thin Liquids - Follow Up Care Current Providers and Referrals: Catrachito Harper MD [Primary Care Provider] - As per Instructions Brien Crandall MD [Medical Doctor] - (Follow up in 2-3 weeks)
--- NOTE | 2018-09-13 15:03 | GDS ---
DISCHARGE DIAGNOSES: 1. Metastatic prostate cancer with dural metastatic disease as well as parenchymal hematoma. 2. Right lower extremity weakness. Please see admission history and physical by Dr. Mattie Valderrama. The patient presented with right-rene ed weakness. He previously had a thoracic and lumbar spine in June which was negative for spinal cord impingement. He is currently undergoing chemotherapy. He had a whole spine MRI and a brain MR I in the emergency department upon presentation showing left hemispheric hemorrhagic stroke in the se tting of dural and brain mets. Oncology and Neurosurgery were consulted. The patient on the un derwent operative debridement with decompression, with considerable improvement in his neurologic exa m. He is on a dexamethasone taper with plans to get radiation therapy as an outpatient. He has been see n by Physical Therapy, who think that the patient would benefit from ongoing rehab, and he is being d ischarged there today. He is discharged on a dexamethasone taper, at which point he will resume 10 mg daily of prednisone. He will get Radiation Therapy to start coming up here. His hemoglobin was greater than 7 for much of this hospital stay. He is on Aranesp for chronic anemia. He did not require transfusion. /[id number]/MODL
--- NOTE | 2018-09-13 15:06 | ASMTLACE ---
LACE Length of stay for Answers: 7-13 days current admission Acuity / Level of Answers: Yes Care: Did the patient have an inpatient admission? Comorbidities - select Answers: Any tumor (including all that apply lymphoma or leukemia) Other Notes: prostate cancer # of Emergency department Answers: 1-2 visits in the last 6 months Score: 12 Date Signed: 09/13/2018 02:59 PM Electronically Signed By:Kathy Fan LCSW
--- NOTE | 2018-09-13 15:14 | ASMTDCNOTE ---
Case Management Discharge Discharge Order Complete? Answers: Yes Patient to Obtain Answers: Other Notes: [facility] Transportation Arranged Answers: Other Notes: wheelchair van Transport will Pick (Date 09/13/2018 12:00 AM & Time) Faxed Final Orders Answers: Yes Notes: [facility] Agency/Facility Transfer Answers: Yes Notes: [facility] Report Printed & Faxed to Receiving Agency Family Notified Answers: Yes Notes: , Tam[place] Discharge Comments Notes: Patient is discharging today to [facility] in [place] for rehab. Transport was set up by Yany with [facility] ([phone]) at 16:00, wheelchair van. Patient stated he would contact his to let her know the details of his transfer. Discharge summaries were forwarded to [facility]. No further needs. Date Signed: 09/13/2018 03:05 PM Electronically Signed By:Kathy Fan LCSW
[2018-09-13 16:06] VITALS: BP 133/73
[2018-09-17] MEDS ORDERED: DEXAMETHASONE 2 MG TAB PO SCH (09:00)
[2018-09-21] MEDS ORDERED: DEXAMETHASONE 2 MG TAB PO SCH (09:00)
== END 2018-09-13 16:36 | disposition home or self-care (01) | DRG 24 ==
LOC: F2N 15:59 → F3N 09-10 22:34
PROVIDERS: ADMIT Student in an Organized Health Care Education/Training Program; ATTEND Student in an Organized Health Care Education/Training Program
PROC: 00C10ZZ Extirpation of Matter from Cerebral Meninges, Open Approach (ICD-10-PCS; principal; 2018-09-08 16:00)
DX: I61.9 Nontraumatic intracerebral hemorrhage, unspecified (principal); C79.31 Secondary malignant neoplasm of brain; C61 Malignant neoplasm of prostate; C79.32 Secondary malignant neoplasm of cerebral meninges; C79.51 Secondary malignant neoplasm of bone; D64.81 Anemia due to antineoplastic chemotherapy; F32.9 Major depressive disorder, single episode, unspecified; Z80.42 Family history of malignant neoplasm of prostate; H75.83 Other specified disorders of middle ear and mastoid in diseases classified elsewhere, bilateral; Z66 Do not resuscitate
CPT/HCPCS: 82435-PO; 82565-PO; 82947-PO; 84132-PO; 84295-PO; 84520-PO; 85014-ER; 92523-GN; 92610-GN; 97110-GP; 97112-GP; 97116-GP; 97162-GP; 97164-GP; 97166-GO; 97168-GO; 97530-GO; 97530-GP; 97535-GO; A9585; C1713; J0690; J1100; J1170; J1200; J1580; J1650; J1953; J2250; J2370; J2405; J2704; J3010; J3430

== ENCOUNTER 2018-09-29 15:20 | Emergency (ER) | payer OTHER ==
--- NOTE | 2018-09-29 15:43 | EDPHY ---
H & P Time Seen by Provider: 09/29/18 15:23 HPI/ROS: HPI Transient left-sided weakness. 67-year-old male by ambulance from the [facility]. This patient has a history of metastatic prostate cancer. He has metastasis to the lung and to the brain. About 3 weeks ago he had a hematoma evacuated from his brain. Secondary to this he does have residual right-sided weakness. He just finished his 1st radiation therapy treatment. He was walking out of the [facility] with his family when he steadily started complaining of inability to move his left arm and difficulty moving his left lower extremity. This lasted for about 5-10 minutes and then resolved. He did not fall to the ground and hit his head. He was caught by family members. Currently he denies any complaints. No associated headache. No complaint of new weakness or loss of sensation currently. The family also noticed during this 5-10 minute. He had a left- sided facial droop. EMS reports a blood sugar of 95. ROS: Constitutional: No fever, no chills. As above. Eyes: No discharge. No changes in vision. ENT: No sore throat. No nasal congestion or rhinorrhea. Respiratory: No cough. No shortness of breath. Cardiac: No chest pain, no palpitations. Gastrointestinal: No abdominal pain, no vomiting, no diarrhea. Genitourinary: No hematuria. No dysuria or increased frequency with urination. Musculoskeletal: No back pain. No neck pain. No myalgias or arthralgias. Skin: No rashes. Neurological: No headache. As above. Past medical history: Metastatic prostate cancer. Social history: Nonsmoker. With family. No alcohol. The patient ambulates with a walker most of the time but is able to ambulate fairly well without assistance. Physical Exam: General Appearance: Alert, no distress. This patient is responding to questions appropriately and in full sentences. This patient appears well- hydrated and well-nourished. Head: Normocephalic atraumatic. Eyes: Pupils equal and round no pallor or injection. No lid edema, erythema or injection. Respiratory: There are no retractions, lungs are clear to auscultation with good air movement bilaterally. Cardiovascular: Regular rate and rhythm. No murmur. Gastrointestinal: Abdomen is soft and nontender, no masses, bowel sounds normal. No focal tenderness at McBurney's point. No Pina sign. Neurological: Motor sensory function is grossly intact except for baseline residual right ankle weakness primarily with Olguin flexion. This is chronic. Cranial nerves are normal. Skin: Warm and dry, no rashes. Musculoskeletal: Neck is supple and nontender. Extremities are symmetrical. All joints range without pain or impingement. Psychiatric: No agitation. No depression. Database: EKG: EKG time is 3:43 p.m.; EKG shows a narrow complex normal sinus rhythm with a ventricular rate of 76. The ND, QRS, QT intervals are within normal limits. There are no ST-T wave changes indicative of ischemic or injury pattern. No evidence of right heart strain. Interpreted by me. Imaging: CT head without contrast: No hemorrhage. There is a slightly increased right- to-left shift from previous study on September 07. No other significant changes from this study. Results were discussed with staff radiologist Dr. Catrachito Humphrey. MRI brain without contrast: Lots of artifact. It is not possible to diagnose an acute infarct because of this. There is an increase right to left subfalcine shift relative to prior study from September 07. Results were discussed with staff radiologist Dr. Lefty Ott. Procedures: Emergency department course: Triage vital signs reviewed. IV was placed. He was placed on a patient monitor. He was started on IV normal saline with 500 cc to be given over the next hour. I spoke with Dr. Porfirio Galvan, staff radiologist regarding imaging. He advises a noncontrast CT head of the brain 1st followed by a noncontrast MRI of the brain. We reviewed the patient's previous medical records. He had a parietal craniectomy on September 09 for metastasis removal. He has multiple bilateral dural Mets. 6:45 p.m., the patient was re-evaluated he is sitting upright on his gurney. He has urinated. Repeat neurologic Assessment is nonfocal and unchanged from above. He tells me that he has had several episodes similar to what was described after his 2nd radiation therapy session today [facility]. He states that this usually happens when he is hungry or dehydrated. I discussed the results of his blood work as well as CT and MR imaging with him and his in detail. I discussed admission for observation in the hospital. They do not want to do this. He is scheduled for another radiation appointment tomorrow with his oncologist Dr. Harper or Dr. Beckford. At this time I feel it is reasonable that he be discharged to home. They live near the hospital and can easily return if needed. Return to emergency department precautions were thoroughly reviewed with the 2 of them. All of their questions were answered. The patient was discharged home in good condition with his . Differential Diagnosis: The differential diagnosis on this patient includes but is not limited to TIA, seizure, metastatic prostate cancer to the brain. This represents a partial list of diagnoses considered. These considerations are based on history, physical exam, past history, reassessment and diagnostic testing. Smoking Status: Never smoked Constitutional: Initial Vital Signs Temperature (C) 36.8 C 09/29/18 15:20 Heart Rate 85 09/29/18 15:20 Respiratory Rate 18 09/29/18 15:20 Blood Pressure 153/81 H 09/29/18 15:20 O2 Sat (%) 97 09/29/18 15:20 O2 Delivery Mode Room Air Allergies/Adverse Reactions: No Known Allergies Allergy (Verified 09/29/18 15:31) Home Medications: Medication Instructions Recorded Acetaminophen [Tylenol ES 500 mg 1,000 mg PO TID 09/05/18 (*)] Cholecalciferol Vit D3 [Vitamin D3 3,000 units PO DAILY 09/05/18 (*)] Herbals/Supplements -Info Only 1 ea PO DAILY 09/05/18 LORazepam [Ativan (*)] 0.5 mg PO HS 09/05/18 [place]-3 Fatty Acids [Fish Oil 1000 2,000 mg PO DAILY 09/05/18 mg (*)] Prochlorperazine Maleate 10 mg PO Q6 PRN 09/05/18 [Compazine 10mg (*)] Sertraline HCl [Zoloft 25mg (*)] 12.5 mg PO DAILY 09/05/18 traMADol HCL [Tramadol HCl] 50 mg PO HS 09/05/18 Dexamethasone [Decadron 2 MG (*)] 2 mg PO DAILY tab 09/13/18 Dexamethasone [Decadron 2 MG (*)] 2 mg PO Q12 tab 09/13/18 Dexamethasone [Decadron 4 MG (*)] 4 mg PO Q12 tab 09/13/18 Hydrocodone/APAP 5/325 [[place] 1 - 2 tab PO Q4HRS PRN tab 09/13/18 5/325 (*)] Polyethylene Glycol 3350 [Miralax 17 gm PO DAILY PRN pkt 09/13/18 17 gm (*)] diphenhydrAMINE [Benadryl 25 MG 25 mg PO Q6HRS PRN cap 09/13/18 (*)] levETIRAcetam [Keppra 500 mg (*)] 750 mg PO BID tab 09/13/18 predniSONE 10 mg PO DAILY #1 tab 09/13/18 Medical Decision Making - Diagnostics Imaging Results: Imaging Impressions Brain MRI 09/29/18 15:44 Impression: 1. Interim craniotomy and resection of left cerebral convexity hemorrhage since 09/07/2018. 2. Diminishing (methemoglobin) hemorrhage in the posterior superior right frontal convexity, however, there is extensive dural metastatic disease over the convexities, right greater than left, with slightly more pronounced subfalcine shift and mass effect. 3. The presence of magnetic susceptibility artifact over the left cerebral convexity disallows diagnostic assessment for an acute or subacute infarction. 4. Extensive mastoid inflammatory changes. 5. Chronic microvascular ischemic gliosis. Findings were discussed with David Phillip MD at 18:13, on 09/29/2018. Head CT 09/29/18 15:44 Impression: Mild increase in right to left shift without obvious change in right greater than left, meningeal carcinomatosis. There is no evidence for new hemorrhage. General information for patients regarding this examination can be found at [email or web address]. If you have questions or comments about this report, please contact me at [phone] (hospital) or [phone] ([facility]). - Data Points Laboratory Results: Laboratory Results 09/29/18 16:57 09/29/18 16:57 09/29/18 09/29/18 16:57 16:57 WBC 7.19 10^3/uL 10^3/uL (3.80-9.50) RBC 3.46 10^6/uL L 10^6/uL (4.40-6.38) Hgb 9.4 g/dL L g/dL (13.7-17.5) Hct 31.3 % L % (40.0-51.0) MCV 90.5 fL fL (81.5-99.8) MCH 27.2 pg L pg (27.9-34.1) MCHC 30.0 g/dL L g/dL (32.4-36.7) RDW 24.0 % H % (11.5-15.2) Plt Count 239 10^3/uL 10^3/uL (150-400) MPV 9.5 fL fL (8.7-11.7) Neut % (Auto) 80.2 % H % (39.3-74.2) Lymph % (Auto) 12.2 % L % (15.0-45.0) [place] % (Auto) 6.5 % % (4.5-13.0) Eos % (Auto) 0.0 % L % (0.6-7.6) Baso % (Auto) 0.0 % L % (0.3-1.7) Nucleat RBC Rel Count 0.8 % H % (0.0-0.2) Absolute Neuts (auto) 5.76 10^3/uL 10^3/uL (1.70-6.50) Absolute Lymphs (auto) 0.88 10^3/uL L 10^3/uL (1.00-3.00) Absolute Monos (auto) 0.47 10^3/uL 10^3/uL (0.30-0.80) Absolute Eos (auto) 0.00 10^3/uL L 10^3/uL (0.03-0.40) Absolute Basos (auto) 0.00 10^3/uL L 10^3/uL (0.02-0.10) Absolute Nucleated RBC 0.06 10^3/uL H 10^3/uL (0-0.01) Immature Gran % 1.1 % % (0.0-1.1) Immature Gran # 0.08 10^3/uL 10^3/uL (0.00-0.10) Platelet Estimate ADEQUATE (ADEQ) Polychromasia 2+ H Hypochromasia 2+ H Oval Macrocytes 1+ H Elliptocytes 1+ H Sodium 130 mEq/L L mEq/L (135-145) Potassium 4.4 mEq/L mEq/L (3.5-5.2) Chloride 97 mEq/L mEq/L (97-110) Carbon Dioxide 26 mEq/l mEq/l (22-31) Anion Gap 7 mEq/L mEq/L (6-14) BUN 25 mg/dL H mg/dL (7-23) Creatinine 0.9 mg/dL mg/dL (0.7-1.3) Estimated GFR > 60 Glucose 76 mg/dL mg/dL (70-100) Calcium 8.6 mg/dL mg/dL (8.5-10.4) Medications Given: Discontinued Medications Sodium Chloride (Ns) 500 mls @ 0 mls/hr IV ONCE ONE; Wide Open PRN Reason: Protocol Stop: 09/29/18 15:45 Last Admin: 09/29/18 16:25 Dose: 500 mls Departure - Departure Disposition: Home, Routine, Self-Care Clinical Impression: Transient left-sided weakness, Prostate cancer Condition: Good Instructions: Weakness (ED) Additional Instructions: Read and follow provided instructions. Follow-up with oncologist, Dr. Harper or Dr. Beckford tomorrow as scheduled for your radiation appointment. Return to the emergency department for worsening headache, confusion, nausea and vomiting, persistent new weakness. Referrals: Boo Beckford MD [Medical Doctor] - As per Instructions
[2018-09-29] MEDS ORDERED: NS 500 ML IV ONE (15:44)
[2018-09-29 17:14] LABS: PLATELET COUNT 239 10^3/uL (150-400)
[2018-09-29 19:30] VITALS: BP 161/90
--- NOTE | 2018-09-29 23:23 | CPEKG ---
Test Reason : OPEN Blood Pressure : / mmHG Vent. Rate : 076 BPM Atrial Rate : 075 BPM P-R Int : 141 ms QRS Dur : 098 ms QT Int : 394 ms P-R-T Axes : 077 062 051 degrees QTc Int : 444 ms Sinus rhythm Minimal ST depression, diffuse leads Confirmed by David Phillip ([id number]) on 09/29/2018 11:23:18 PM Referred By: David Phillip Confirmed By:David Phillip
== END 2018-09-29 19:29 | disposition home or self-care (01) ==
LOC: EDUNIT#
DX: R53.1 Weakness (principal); C79.31 Secondary malignant neoplasm of brain; C61 Malignant neoplasm of prostate; C79.32 Secondary malignant neoplasm of cerebral meninges; C79.51 Secondary malignant neoplasm of bone; E86.9 Volume depletion, unspecified

== ENCOUNTER 2018-11-13 22:51 | Emergency (ER) | payer OTHER ==
[2018-11-13] MEDS ORDERED: CEPHALEXIN 500MG PREPACK#4 BTL TAKEHOME ONE (23:29)
--- NOTE | 2018-11-13 23:30 | EDPHY ---
H & P Stated Complaint: left forearm swelling that started today. Time Seen by Provider: 11/13/18 23:06 HPI/ROS: Chief Complaint: Arm swelling, elbow redness HPI: 59-year-old male with a complex medical history including metastatic prostate cancer with brain metastasis. Patient is complaining of swelling of his left forearm and some redness over his elbow. Patient had a hemorrhage into a brain metastasis 2 months ago and underwent craniotomy with hematoma evacuation tumor resection. Patient has been quite sedentary since that time and sits with his arm resting in the chair for most of the day. Noted some redness over his elbow today with some worsening swelling of his left forearm over the last 2 days. He has been unable to remove his wedding ring. He is no longer on any active treatment. Radiation Oncology has determined that the risks of him making the trip to the radiation center [facility] warrant further treatments. Patient was seen in consultation at [facility] earlier this week who determined that they do not have any further treatments that they can recommend at this time. ROS: 10 systems were reviewed and were negative except those elements noted in the HPI. PMH: Prostate cancer with intracranial metastasis Social History: No smoking, no alcohol, no recreational drug use Family History: non-contributory Physical Exam: Gen: Awake, Alert, No Distress HEENT: Nose: no rhinorrhea Eyes: PERRLA, EOMI Mouth: Moist mucosa Neck: Supple, no JVD Chest: nontender, lungs clear to auscultation Heart: S1, S2 normal, no murmur Abd: Soft, non-tender, no guarding Back: no CVA tenderness, no midline tenderness Ext: Left forearm 2+ pitting edema. There is a small abrasion over his left elbow with some surrounding erythema approximately 2 cm. There is no fluctuance. There is no pointing. There is no mass. There is no surrounding erythema. He has 2+ radial ulnar pulses. Capillary refills less than 2 sec. Sensations intact in the radial, median, ulnar nerve distribution. Skin: no rash Neuro: CN II-XII intact, Sensation grossly intact, Strength 5/5 in bilateral upper and lower extremities - Personal History Current Tetanus Diphtheria and Acellular Pertussis (TDAP): Yes - Medical/Surgical History Hx Asthma: No Hx Chronic Respiratory Disease: No Hx Diabetes: No Hx Cardiac Disease: No Hx Renal Disease: No Hx Cirrhosis: No Hx Alcoholism: No Hx HIV/AIDS: No Hx Splenectomy or Spleen Trauma: No Other PMH: PROSTATE CANCER with mets to bone - Social History Smoking Status: Never smoked Constitutional: Initial Vital Signs Temperature (C) 36.2 C 11/13/18 22:56 Heart Rate 102 H 11/13/18 22:56 Respiratory Rate 18 11/13/18 22:56 Blood Pressure 163/91 H 11/13/18 22:56 O2 Sat (%) 95 11/13/18 22:56 O2 Delivery Mode Room Air Allergies/Adverse Reactions: No Known Allergies Allergy (Verified 11/13/18 22:56) Home Medications: Medication Instructions Recorded Acetaminophen [Tylenol ES 500 mg 1,000 mg PO TID 09/05/18 (*)] Cholecalciferol Vit D3 [Vitamin D3 3,000 units PO DAILY 09/05/18 (*)] Herbals/Supplements -Info Only 1 ea PO DAILY 09/05/18 LORazepam [Ativan (*)] 0.5 mg PO HS 09/05/18 [place]-3 Fatty Acids [Fish Oil 1000 2,000 mg PO DAILY 09/05/18 mg (*)] Prochlorperazine Maleate 10 mg PO Q6 PRN 09/05/18 [Compazine 10mg (*)] Sertraline HCl [Zoloft 25mg (*)] 12.5 mg PO DAILY 09/05/18 traMADol HCL [Tramadol HCl] 50 mg PO HS 09/05/18 Dexamethasone [Decadron 2 MG (*)] 2 mg PO DAILY tab 09/13/18 Dexamethasone [Decadron 2 MG (*)] 2 mg PO Q12 tab 09/13/18 Dexamethasone [Decadron 4 MG (*)] 4 mg PO Q12 tab 09/13/18 Hydrocodone/APAP 5/325 [[place] 1 - 2 tab PO Q4HRS PRN tab 09/13/18 5/325 (*)] Polyethylene Glycol 3350 [Miralax 17 gm PO DAILY PRN pkt 09/13/18 17 gm (*)] diphenhydrAMINE [Benadryl 25 MG 25 mg PO Q6HRS PRN cap 09/13/18 (*)] levETIRAcetam [Keppra 500 mg (*)] 750 mg PO BID tab 09/13/18 predniSONE 10 mg PO DAILY #1 tab 09/13/18 Cephalexin [Keflex (*)] 500 mg PO Q6H #28 cap 11/13/18 Medical Decision Making ED Course/Re-evaluation: Patient presenting with significant left arm swelling and erythema over his left elbow. I had extensive conversation with the patient and his family. They have had multiple consultations nerve no further treatment recommendations for his cancer at this time and there low considering hospice care. Patient did have a spontaneous intracranial bleed 2 months ago when to metastasis. It is possible he has a new DVT in his left arm however given his intracranial bleed recently he would not be a candidate for anticoagulation. I have discussed the options with the patient at this time he is comfortable with the plan to treat the very early mild cellulitis with oral antibiotics. He has an appoint with his oncologist this week. Plan will be to follow up with his oncologist for recheck in the neck and discuss further options and if he would like to have further evaluations. Patient is not wanting any further evaluations at this time. - Data Points Medications Given: Discontinued Medications Cephalexin (Keflex 500 Mg Prepack#4) 1 btl TAKEHOME EDNOW ONE PRN Reason: Protocol Stop: 11/13/18 23:30 Last Admin: 11/13/18 23:32 Dose: 1 btl Departure - Departure Disposition: Home, Routine, Self-Care Clinical Impression: Cellulitis Condition: Good Instructions: Cephalexin (By mouth), Cellulitis (ED) Additional Instructions: Follow up with your oncologist and primary care physician in 2 days for recheck. Return emergency department for increasing redness, fevers, increasing weakness , worsening swelling, or any other concerns. Referrals: Lesia Mason MD [Primary Care Provider] - As per Instructions Prescriptions: Cephalexin [Keflex (*)] 500 mg PO Q6H #28 cap
[2018-11-13 23:35] VITALS: BP 154/86
== END 2018-11-13 23:59 | disposition home or self-care (01) ==
DX: L03.114 Cellulitis of left upper limb (principal); C61 Malignant neoplasm of prostate; C79.31 Secondary malignant neoplasm of brain; C79.51 Secondary malignant neoplasm of bone